=== PATIENT | male | born 1940 | race Caucasian/White ===

== ENCOUNTER 2021-04-23 07:09 | Inpatient (IN) ==
[2021-04-23] MEDS ORDERED: Tetan/Diph/Pertus SYR(Tdap) 0.5 ML SYR(BOOSTRIX) use SYR contains LATEX IM ONE (07:25)
[2021-04-23] MEDS ORDERED: Ondansetron 4 mg VIAL 2 MG/ML 2 ml VIAL IV ONE (07:26)
[2021-04-23] MEDS ORDERED: Morphine 4 MG/ML VIAL (1 ml) IV ONE ×4 (07:26→10:17)
[2021-04-23 07:50] LABS: ABS Eosinophils 0.1 10^3/ul (0-0.6); ABS Monocytes 0.9 10^3/ul (0-0.8); ABS Neutrophils 12.4 10^3/ul (1.5-7.7); Eosinophil % 0.9 %; Hematocrit 38 % (42-52); Hemoglobin 12.4 g/dL (14.0-18.0); Lymphocyte % 6.8 %; Mean Corpuscular HGB Conc 33 g/dL (31-36); Mean Corpuscular Hemoglobin 31 pg (27-31); Mean Corpuscular Volume 93 fL (80-94); Platelet Count 181 10^3/uL (150-450); Red Blood Count 4.06 10^6 /uL (4.18-5.48); Red Cell Distribution Width 17 % (10-15); White Blood Count 14.4 10^3/uL (3.5-10.8)
[2021-04-23 08:07] LABS: ALT 16 U/L (7-52); AST 23 U/L (13-39); Albumin/Globulin Ratio 1.1 (1-3); Alkaline Phosphatase 97 U/L (35-149); Blood Urea Nitrogen 38 mg/dL (6-24); CO2 Carbon Dioxide 24 mmol/L (22-32); Calcium 9.9 mg/dL (8.6-10.3); Chloride 106 mmol/L (101-111); Globulin 3.7 g/dL (2-4); Glucose 111 mg/dL (70-100); Magnesium 1.9 mg/dL (1.9-2.7); Sodium 137 mmol/L (135-145); Total Protein 7.7 g/dL (6.4-8.9); eGFR CKD-EPI 43.5 (>60)
[2021-04-23 08:09] LABS: Anion Gap 7 mmol/L (2-11); Potassium 5.2 mmol/L (3.5-5.0)
[2021-04-23 08:12] LABS: Troponin I 0.03 ng/mL (<0.03)
[2021-04-23 08:37] LABS: Alcohol, S < 13 mg/dL (<13)
[2021-04-23 08:49] LABS: TSH Ultra Thyroid Stim Horm 2.64 mcIU/mL (0.34-5.60)
[2021-04-23] MEDS ORDERED: NS 0.9% 500 ml BAG 500 ML IV ONE (08:58)
[2021-04-23] MEDS ORDERED: Iodixanol (CONTRAST) 320 MG/ML 100 ML SDV IV ONE (09:44)
[2021-04-23] MEDS ORDERED: LORazepam 2 mg VIAL 1 ml IV PUSH ONE (11:00)
[2021-04-23] MEDS ORDERED: Lorazepam PYXIS KEY PRN (11:00)
[2021-04-23] MEDS ORDERED: Albuterol HFA INHALER 8 gm MDI INH ONE (11:04)
[2021-04-23] MEDS ORDERED: NS 0.9% 1000 ml BAG 1,000 ML IV ONE (12:18)
[2021-04-23] MEDS ORDERED: Piperacillin/Tazobac ADVAN 3.375 GM in NS 0.9% 100 ml BAG 100 ML IV ONE (13:58)
[2021-04-23 16:37] LABS: Creatine Kinase 204 U/L (10-223); Phosphorus 2.9 mg/dL (2.5-5.0)
[2021-04-23] MEDS ORDERED: fentaNYL 100 mcg/2 ml 50 MCG/ML VIAL IV SLOW PU PRN (16:37)
[2021-04-23] MEDS ORDERED: Albuterol/Ipratropium NEB.SOL (2.5/0.5 MG) 3 ML NEB.SOLN INH PRN (16:54)
[2021-04-23] MEDS ORDERED: Azithromycin 500 mg/250 ml NS 500 MG/250 ML BAG IVPB ONE (17:00)
[2021-04-23] MEDS: D5LR 1000 ml BAG 1,000 ML IV SCH (17:00)
[2021-04-23] MEDS: Lidocaine PATCH 5% PATCH TRANSDERM SCH (17:03)
[2021-04-23] MEDS: Acetaminophen IV 1 GM/100ML 100 ML IV SCH (17:03)
[2021-04-23 17:53] LABS: Troponin I 0.21 ng/mL (<0.03)
[2021-04-23 18:41] LABS: Anion Gap 8 mmol/L (2-11); CO2 Carbon Dioxide 21 mmol/L (22-32); Calcium 8.8 mg/dL (8.6-10.3); Chloride 109 mmol/L (101-111); Sodium 138 mmol/L (135-145)
[2021-04-23 18:47] LABS: Blood Urea Nitrogen 35 mg/dL (6-24); Glucose 98 mg/dL (70-100); eGFR CKD-EPI 41.9 (>60)
[2021-04-23 19:01] LABS: Urine Appearance Clear; Urine Bilirubin Negative (Negative); Urine Blood Negative (Negative); Urine Color Yellow; Urine Glucose Negative (Negative); Urine Ketones Negative (Negative); Urine Nitrite Negative (Negative); Urine Protein 1+(30 mg/dL) (Negative); Urine Specific Gravity 1.023 (1.002-1.030); Urine Urobilinogen Negative (Negative)
[2021-04-23 19:09] LABS: Urine Bacteria Absent (Absent); Urine Red Blood Cell 2+(6-10/hpf) (Absent); Urine White Blood Cell Trace(0-5/hpf) (Absent)
[2021-04-23 20:42] LABS: Troponin I 0.36 ng/mL (<0.03)
[2021-04-23] MEDS: cefTRIAXone 1 gm/50 mL NS BAG 1 GM/50 ML BAG IVPB SCH (22:57)
[2021-04-23] MEDS: Lidocaine Patch REMOVE NOTE PATCH OFF SCH (23:01)
[2021-04-23 23:22] LABS: Troponin I 0.38 ng/mL (<0.03)
[2021-04-24] MEDS ORDERED: Haloperidol 5 mg/ml SDV IV/IM 5 MG/ML AMP IV SLOW PU PRN (00:23)
[2021-04-24] MEDS ORDERED: LORazepam 2 mg VIAL 1 ml IV PUSH PRN (00:25)
[2021-04-24] MEDS ORDERED: Lorazepam PYXIS KEY PRN ×2 (00:25→02:29)
[2021-04-24] MEDS ORDERED: LORazepam 2 mg VIAL 1 ml ONE (00:30)
[2021-04-24] MEDS: Acetaminophen IV 1 GM/100ML 100 ML IV SCH (01:49)
[2021-04-24 02:22] LABS: Troponin I 0.51 ng/mL (<0.03)
[2021-04-24] MEDS ORDERED: LORazepam 2 mg VIAL 1 ml IV PUSH ONE (02:29)
[2021-04-24] MEDS ORDERED: fentaNYL 100 mcg/2 ml 50 MCG/ML VIAL IV SLOW PU PRN (02:32)
[2021-04-24 05:55] LABS: ABS Eosinophils 0.1 10^3/ul (0-0.6); ABS Monocytes 0.6 10^3/ul (0-0.8); ABS Neutrophils 11.8 10^3/ul (1.5-7.7); Eosinophil % 0.8 %; Hematocrit 31 % (42-52); Hemoglobin 10.3 g/dL (14.0-18.0); Lymphocyte % 7.1 %; Mean Corpuscular HGB Conc 33 g/dL (31-36); Mean Corpuscular Hemoglobin 31 pg (27-31); Mean Corpuscular Volume 93 fL (80-94); Platelet Count 146 10^3/uL (150-450); Red Blood Count 3.35 10^6 /uL (4.18-5.48); Red Cell Distribution Width 16 % (10-15); White Blood Count 13.5 10^3/uL (3.5-10.8)
[2021-04-24 06:32] LABS: Anion Gap 8 mmol/L (2-11); CO2 Carbon Dioxide 20 mmol/L (22-32); Calcium 8.7 mg/dL (8.6-10.3); Chloride 111 mmol/L (101-111); Potassium 4.4 mmol/L (3.5-5.0); Sodium 139 mmol/L (135-145)
[2021-04-24 06:33] LABS: Troponin I 0.51 ng/mL (<0.03)
[2021-04-24 06:38] LABS: Blood Urea Nitrogen 35 mg/dL (6-24); Glucose 105 mg/dL (70-100); eGFR CKD-EPI 44.8 (>60)
[2021-04-24] MEDS: D5LR 1000 ml BAG 1,000 ML IV SCH (06:57)
[2021-04-24] MEDS ORDERED: Morphine 2 MG/ML SYRINGE IV PRN (08:18)
[2021-04-24] MEDS ORDERED: Albuterol HFA INHALER 8 gm MDI INH PRN (08:19)
[2021-04-24] MEDS: Lidocaine PATCH 5% PATCH TRANSDERM SCH (09:00)
[2021-04-24] MEDS: Mometasone/Formoter 100/5 MDI INH SCH ×2 (11:41→19:43)
[2021-04-24] MEDS: Senna TAB 8.6 mg TAB PO PRN (11:41)
[2021-04-24 18:32] LABS: ABS Eosinophils 0.1 10^3/ul (0-0.6); ABS Lymphocytes 1.1 10^3/ul (1.0-4.8); ABS Monocytes 0.8 10^3/ul (0-0.8); ABS Neutrophils 12.1 10^3/ul (1.5-7.7); Eosinophil % 0.9 %; Hematocrit 36 % (42-52); Hemoglobin 11.4 g/dL (14.0-18.0); Lymphocyte % 7.7 %; Mean Corpuscular HGB Conc 32 g/dL (31-36); Mean Corpuscular Hemoglobin 30 pg (27-31); Mean Corpuscular Volume 95 fL (80-94); Mean Platelet Volume 8.1 fL (7.4-10.4); Platelet Count 153 10^3/uL (150-450); Red Blood Count 3.75 10^6 /uL (4.18-5.48); Red Cell Distribution Width 17 % (10-15); White Blood Count 14.1 10^3/uL (3.5-10.8)
[2021-04-24] MEDS: Heparin 5000 UNITS/ML 1 mL VIAL SUBCUT SCH (21:15)
[2021-04-24] MEDS: cefTRIAXone 1 gm/50 mL NS BAG 1 GM/50 ML BAG IVPB SCH (21:15)
[2021-04-24] MEDS: Lidocaine Patch REMOVE NOTE PATCH OFF SCH (21:21)
[2021-04-25] MEDS: D5LR 1000 ml BAG 1,000 ML IV SCH ×2 (02:23→15:25)
[2021-04-25] MEDS ORDERED: Lorazepam PYXIS KEY PRN (03:14)
[2021-04-25] MEDS ORDERED: LORazepam 2 mg VIAL 1 ml IV PUSH ONE (03:15)
[2021-04-25 05:16] LABS: ABS Eosinophils 0.2 10^3/ul (0-0.6); ABS Lymphocytes 0.9 10^3/ul (1.0-4.8); ABS Monocytes 0.7 10^3/ul (0-0.8); ABS Neutrophils 8.7 10^3/ul (1.5-7.7); Eosinophil % 2.2 %; Hematocrit 32 % (42-52); Hemoglobin 10.8 g/dL (14.0-18.0); Lymphocyte % 8.1 %; Mean Corpuscular HGB Conc 34 g/dL (31-36); Mean Corpuscular Hemoglobin 31 pg (27-31); Mean Corpuscular Volume 93 fL (80-94); Mean Platelet Volume 8.8 fL (7.4-10.4); Nucleated Red Blood Cells % 0.1; Platelet Count 158 10^3/uL (150-450); Red Blood Count 3.48 10^6 /uL (4.18-5.48); Red Cell Distribution Width 16 % (10-15); White Blood Count 10.5 10^3/uL (3.5-10.8)
[2021-04-25] MEDS: Heparin 5000 UNITS/ML 1 mL VIAL SUBCUT SCH ×3 (05:28→22:22)
[2021-04-25 05:31] LABS: Potassium 4.1 mmol/L (3.5-5.0); eGFR CKD-EPI 44.5 (>60)
[2021-04-25] MEDS: Mometasone/Formoter 100/5 MDI INH SCH ×2 (07:21→19:32)
[2021-04-25] MEDS: Lidocaine PATCH 5% PATCH TRANSDERM SCH (09:53)
[2021-04-25] MEDS ORDERED: Nicotine GUM 4MG FRUIT FLAVOR PO PRN (12:22)
[2021-04-25] MEDS: Nicotine PATCH 14 MG/24 HR PATCH TRANSDERM SCH (12:38)
[2021-04-25] MEDS: cefTRIAXone 1 gm/50 mL NS BAG 1 GM/50 ML BAG IVPB SCH (22:17)
[2021-04-25] MEDS: Lidocaine Patch REMOVE NOTE PATCH OFF SCH (22:29)
[2021-04-25] MEDS: Senna TAB 8.6 mg TAB PO PRN (22:30)
[2021-04-26] MEDS: D5LR 1000 ml BAG 1,000 ML IV SCH ×3 (02:01→12:17)
[2021-04-26 05:44] LABS: ABS Eosinophils 0.2 10^3/ul (0-0.6); ABS Lymphocytes 0.7 10^3/ul (1.0-4.8); ABS Monocytes 0.7 10^3/ul (0-0.8); ABS Neutrophils 8.8 10^3/ul (1.5-7.7); Eosinophil % 2.3 %; Hematocrit 32 % (42-52); Hemoglobin 10.6 g/dL (14.0-18.0); Mean Corpuscular HGB Conc 34 g/dL (31-36); Mean Corpuscular Hemoglobin 32 pg (27-31); Mean Corpuscular Volume 94 fL (80-94); Mean Platelet Volume 8.7 fL (7.4-10.4); Platelet Count 162 10^3/uL (150-450); Red Blood Count 3.35 10^6 /uL (4.18-5.48); Red Cell Distribution Width 16 % (10-15); White Blood Count 10.5 10^3/uL (3.5-10.8)
[2021-04-26 05:56] LABS: Activated Partial Thrombo Time 25.3 seconds (26.0-38.0); INR 1.21 (0.86-1.15)
[2021-04-26 06:01] LABS: Calcium 9.1 mg/dL (8.6-10.3); Potassium 4.2 mmol/L (3.5-5.0); eGFR CKD-EPI 51.2 (>60)
[2021-04-26] MEDS ORDERED: ROPIVACAINE 5 MG/ML 30 ML BTL (0.5%) ONE (07:08)
[2021-04-26] MEDS ORDERED: ceFAZolin 1 GM ADVAN 1 GM ADDV.VIAL IVPB ONE (07:12)
[2021-04-26] MEDS: Mometasone/Formoter 100/5 MDI INH SCH ×2 (07:23→21:15)
[2021-04-26] MEDS ORDERED: Midazolam 2 mg/2 ml VIAL 1 mg/ml 2 ml VIAL (2 mg) ONE (07:27)
[2021-04-26] MEDS ORDERED: Propofol 10 MG/ML 20 ML BTL ONE ×2 (07:27→08:53)
[2021-04-26] MEDS ORDERED: Ketamine HCL 50 mg/ml 10 ml VIAL (500 MG) ONE (07:27)
[2021-04-26] MEDS ORDERED: Bupivacaine 0.5% SDV PF 30ML VIAL ONE (07:56)
[2021-04-26] MEDS ORDERED: Phenylephrine IV 10 MG/ML 1 ml VIAL ONE (08:51)
[2021-04-26] MEDS ORDERED: Phenylephrine 40 mcg/mL 10mL (400mcg) SYRINGE ONE (08:51)
[2021-04-26] MEDS ORDERED: Naloxone 0.4 mg VIAL 0.4 mg/ml 1 ml VIAL IV PRN (08:54)
[2021-04-26] MEDS ORDERED: fentaNYL 100 mcg/2 ml 50 MCG/ML VIAL IV PRN (08:54)
[2021-04-26] MEDS ORDERED: DiMENhydriNATE IV 50 mg/ml 1 ml VIAL IV PUSH PRN (08:54)
[2021-04-26] MEDS: Lidocaine PATCH 5% PATCH TRANSDERM SCH (12:01)
[2021-04-26] MEDS: Nicotine PATCH 14 MG/24 HR PATCH TRANSDERM SCH (12:13)
[2021-04-26] MEDS ORDERED: ceFAZolin 1 GM X 3 DOSES POST-OP Q8H (AddVan) IVPB SCH (17:00)
[2021-04-26 18:42] LABS: Urine Appearance Clear; Urine Bilirubin Negative (Negative); Urine Blood 2+ (Negative); Urine Color Yellow; Urine Glucose Negative (Negative); Urine Ketones Trace (Negative); Urine Nitrite Negative (Negative); Urine Protein 1+(30 mg/dL) (Negative); Urine Specific Gravity 1.015 (1.002-1.030); Urine Urobilinogen Negative (Negative)
[2021-04-26 18:49] LABS: Urine Bacteria Absent (Absent); Urine Red Blood Cell 2+(6-10/hpf) (Absent); Urine White Blood Cell Trace(0-5/hpf) (Absent)
[2021-04-26] MEDS: cefTRIAXone 1 gm/50 mL NS BAG 1 GM/50 ML BAG IVPB SCH (21:40)
[2021-04-26] MEDS: Lidocaine Patch REMOVE NOTE PATCH OFF SCH (21:41)
[2021-04-27] MEDS: D5LR 1000 ml BAG 1,000 ML IV SCH ×2 (03:14→20:50)
[2021-04-27 03:51] LABS: ABS Eosinophils 0.1 10^3/ul (0-0.6); ABS Lymphocytes 0.6 10^3/ul (1.0-4.8); ABS Monocytes 0.9 10^3/ul (0-0.8); ABS Neutrophils 9.5 10^3/ul (1.5-7.7); Eosinophil % 0.5 %; Hematocrit 30 % (42-52); Hemoglobin 9.9 g/dL (14.0-18.0); Lymphocyte % 5.8 %; Mean Corpuscular HGB Conc 33 g/dL (31-36); Mean Corpuscular Hemoglobin 31 pg (27-31); Mean Corpuscular Volume 93 fL (80-94); Platelet Count 177 10^3/uL (150-450); Red Blood Count 3.25 10^6 /uL (4.18-5.48); Red Cell Distribution Width 17 % (10-15); White Blood Count 11.1 10^3/uL (3.5-10.8)
[2021-04-27 04:04] LABS: Calcium 8.6 mg/dL (8.6-10.3); Potassium 4.1 mmol/L (3.5-5.0); eGFR CKD-EPI 47.8 (>60)
[2021-04-27 06:18] LABS: ABS Eosinophils 0.1 10^3/ul (0-0.6); ABS Monocytes 1.1 10^3/ul (0-0.8); ABS Neutrophils 10.3 10^3/ul (1.5-7.7); Hematocrit 32 % (42-52); Hemoglobin 10.2 g/dL (14.0-18.0); Lymphocyte % 7.8 %; Mean Corpuscular HGB Conc 32 g/dL (31-36); Mean Corpuscular Hemoglobin 30 pg (27-31); Mean Corpuscular Volume 94 fL (80-94); Mean Platelet Volume 8.9 fL (7.4-10.4); Nucleated Red Blood Cells % 0.1; Platelet Count 172 10^3/uL (150-450); Red Blood Count 3.37 10^6 /uL (4.18-5.48); Red Cell Distribution Width 16 % (10-15); White Blood Count 12.4 10^3/uL (3.5-10.8)
[2021-04-27 06:37] LABS: Calcium 8.8 mg/dL (8.6-10.3); Potassium 4.2 mmol/L (3.5-5.0); eGFR CKD-EPI 48.2 (>60)
[2021-04-27] MEDS: Enoxaparin 40 MG/0.4 ML SYR SUBCUT SCH (08:31)
[2021-04-27] MEDS: Lidocaine PATCH 5% PATCH TRANSDERM SCH (08:33)
[2021-04-27] MEDS: Nicotine PATCH 14 MG/24 HR PATCH TRANSDERM SCH (08:36)
[2021-04-27] MEDS ORDERED: Haloperidol 5 mg/ml SDV IV/IM 5 MG/ML AMP IV SLOW PU ONE (09:03)
[2021-04-27] MEDS ORDERED: Buffered Lidocaine 1% SYRIN 1 ml INTRADERM ONE (09:18)
[2021-04-27] MEDS ORDERED: Vancomycin 1,500 MG in NS 0.9% 250 ml 250 ML IVPB ONE (11:00)
[2021-04-27] MEDS: Mometasone/Formoter 100/5 MDI INH SCH ×2 (11:33→20:04)
[2021-04-27] MEDS ORDERED: Vancomycin per Pharmacy 1 EA NOTE FOLLOW UP PRN (12:07)
[2021-04-27] MEDS: Cefepime 2 GM in Dextrose 2 GM/50 ML BAG IV SCH (13:17)
[2021-04-27 13:27] LABS: C Reactive Protein 281.58 mg/L (<8.01)
[2021-04-27] MEDS: Lidocaine Patch REMOVE NOTE PATCH OFF SCH ×2 (20:47→20:49)
[2021-04-28] MEDS: Cefepime 2 GM in Dextrose 2 GM/50 ML BAG IV SCH ×2 (01:27→14:27)
[2021-04-28] MEDS: Nicotine PATCH 14 MG/24 HR PATCH TRANSDERM SCH (08:11)
[2021-04-28] MEDS: Senna TAB 8.6 mg TAB PO PRN (08:11)
[2021-04-28] MEDS: Lidocaine PATCH 5% PATCH TRANSDERM SCH (08:13)
[2021-04-28] MEDS: Enoxaparin 40 MG/0.4 ML SYR SUBCUT SCH (08:16)
[2021-04-28] MEDS: Polyethylene Glycol 3350 17 GM PACKET PO PRN (08:17)
[2021-04-28] MEDS: D5LR 1000 ml BAG 1,000 ML IV SCH ×2 (08:43→21:26)
[2021-04-28 09:03] LABS: ABS Eosinophils 0.3 10^3/ul (0-0.6); ABS Lymphocytes 0.7 10^3/ul (1.0-4.8); ABS Monocytes 0.9 10^3/ul (0-0.8); ABS Neutrophils 7.5 10^3/ul (1.5-7.7); Eosinophil % 3.4 %; Hematocrit 26 % (42-52); Hemoglobin 8.7 g/dL (14.0-18.0); Lymphocyte % 7.3 %; Mean Corpuscular HGB Conc 33 g/dL (31-36); Mean Corpuscular Hemoglobin 31 pg (27-31); Mean Corpuscular Volume 93 fL (80-94); Mean Platelet Volume 8.5 fL (7.4-10.4); Platelet Count 195 10^3/uL (150-450); Red Blood Count 2.82 10^6 /uL (4.18-5.48); Red Cell Distribution Width 16 % (10-15); White Blood Count 9.4 10^3/uL (3.5-10.8)
[2021-04-28 09:23] LABS: Calcium 8.5 mg/dL (8.6-10.3); eGFR CKD-EPI 44.5 (>60)
[2021-04-28] MEDS: Mometasone/Formoter 100/5 MDI INH SCH ×2 (12:21→19:38)
[2021-04-28] MEDS: Vancomycin 1,250 MG in NS 0.9% 250 ml 250 ML IVPB SCH (12:42)
[2021-04-28] MEDS: Lidocaine Patch REMOVE NOTE PATCH OFF SCH (21:16)
[2021-04-29] MEDS: Cefepime 2 GM in Dextrose 2 GM/50 ML BAG IV SCH ×2 (01:01→13:47)
[2021-04-29 05:08] LABS: ABS Eosinophils 0.5 10^3/ul (0-0.6); ABS Lymphocytes 0.7 10^3/ul (1.0-4.8); ABS Monocytes 0.7 10^3/ul (0-0.8); ABS Neutrophils 5.7 10^3/ul (1.5-7.7); Eosinophil % 6.9 %; Hematocrit 24 % (42-52); Lymphocyte % 9.3 %; Mean Corpuscular HGB Conc 33 g/dL (31-36); Mean Corpuscular Hemoglobin 31 pg (27-31); Mean Corpuscular Volume 93 fL (80-94); Mean Platelet Volume 8.1 fL (7.4-10.4); Platelet Count 210 10^3/uL (150-450); Red Blood Count 2.61 10^6 /uL (4.18-5.48); Red Cell Distribution Width 15 % (10-15); White Blood Count 7.6 10^3/uL (3.5-10.8)
[2021-04-29 05:25] LABS: Calcium 8.4 mg/dL (8.6-10.3); Magnesium 1.7 mg/dL (1.9-2.7); eGFR CKD-EPI 47.8 (>60)
[2021-04-29] MEDS: Mometasone/Formoter 100/5 MDI INH SCH ×2 (07:18→20:25)
[2021-04-29] MEDS ORDERED: Magnesium Sulfate IV 3 GM in NS 0.9% 100 ml BAG 100 ML IVPB ONE (08:25)
[2021-04-29] MEDS ORDERED: Magnesium Sulfate 2 GM IV (Premix) IVPB ONE (09:00)
[2021-04-29] MEDS ORDERED: Haloperidol 5 mg/ml SDV IV/IM 5 MG/ML AMP IV SLOW PU ONE (09:01)
[2021-04-29] MEDS ORDERED: COVID-19 VACCINE, MRNA(MODERNA)/PF 100 MCG/0.5 ML IM ONE (09:19)
[2021-04-29] MEDS: Lidocaine PATCH 5% PATCH TRANSDERM SCH (09:32)
[2021-04-29] MEDS: Nicotine PATCH 14 MG/24 HR PATCH TRANSDERM SCH (09:33)
[2021-04-29] MEDS: Enoxaparin 40 MG/0.4 ML SYR SUBCUT SCH (09:34)
[2021-04-29] MEDS: Senna TAB 8.6 mg TAB PO PRN (09:35)
[2021-04-29] MEDS: Polyethylene Glycol 3350 17 GM PACKET PO PRN (09:41)
[2021-04-29] MEDS ORDERED: Magnesium Sulfate 1 GM IV 1 GM/100 ML BAG IV ONE (10:00)
[2021-04-29 12:36] LABS: C Reactive Protein 236.61 mg/L (<8.01)
[2021-04-29] MEDS ORDERED: COVID-19 VACCINE, TRIS(PFIZER)/PF 30 MCG/0.3 ML IM ONE (14:00)
[2021-04-29] MEDS: Vancomycin 1,250 MG in NS 0.9% 250 ml 250 ML IVPB SCH (15:19)
[2021-04-29] MEDS: D5LR 1000 ml BAG 1,000 ML IV SCH (17:52)
[2021-04-29] MEDS: Lidocaine Patch REMOVE NOTE PATCH OFF SCH (20:25)
[2021-04-30] MEDS: Cefepime 2 GM in Dextrose 2 GM/50 ML BAG IV SCH ×2 (00:28→12:49)
[2021-04-30 05:18] LABS: Hematocrit 26 % (42-52); Hemoglobin 8.4 g/dL (14.0-18.0); Mean Corpuscular HGB Conc 33 g/dL (31-36); Mean Corpuscular Hemoglobin 30 pg (27-31); Mean Corpuscular Volume 92 fL (80-94); Platelet Count 274 10^3/uL (150-450); Red Cell Distribution Width 16 % (10-15); White Blood Count 8.5 10^3/uL (3.5-10.8)
[2021-04-30 05:26] LABS: ABS Eosinophils 0.4 10^3/ul (0-0.6); ABS Lymphocytes 0.8 10^3/ul (1.0-4.8); ABS Monocytes 0.7 10^3/ul (0-0.8); ABS Neutrophils 6.7 10^3/ul (1.5-7.7); Eosinophil % 4.8 %
[2021-04-30] MEDS: D5LR 1000 ml BAG 1,000 ML IV SCH ×2 (05:49→23:55)
[2021-04-30] MEDS: Nicotine PATCH 14 MG/24 HR PATCH TRANSDERM SCH (08:13)
[2021-04-30] MEDS: Lidocaine PATCH 5% PATCH TRANSDERM SCH (08:14)
[2021-04-30] MEDS: Mometasone/Formoter 100/5 MDI INH SCH ×2 (08:15→20:53)
[2021-04-30] MEDS: Enoxaparin 40 MG/0.4 ML SYR SUBCUT SCH (08:18)
[2021-04-30] MEDS ORDERED: Vancomycin Trough Check NOTE FOLLOW UP ONE (11:30)
[2021-04-30] MEDS: Lidocaine Patch REMOVE NOTE PATCH OFF SCH (21:02)
[2021-05-01] MEDS: Haloperidol 5 mg/ml SDV IV/IM 5 MG/ML AMP IV PRN (04:44)
[2021-05-01] MEDS ORDERED: Lorazepam PYXIS KEY PRN (07:08)
[2021-05-01] MEDS: LORazepam 2 mg VIAL 1 ml IV PUSH PRN (07:54)
[2021-05-01] MEDS: Enoxaparin 40 MG/0.4 ML SYR SUBCUT SCH (08:23)
[2021-05-01] MEDS: Mometasone/Formoter 100/5 MDI INH SCH ×3 (08:49→20:53)
[2021-05-01] MEDS: Lidocaine PATCH 5% PATCH TRANSDERM SCH (09:06)
[2021-05-01] MEDS: Nicotine PATCH 14 MG/24 HR PATCH TRANSDERM SCH (10:25)
[2021-05-01] MEDS: D5LR 1000 ml BAG 1,000 ML IV SCH (17:58)
[2021-05-01] MEDS: Senna TAB 8.6 mg TAB PO PRN (21:46)
[2021-05-02] MEDS: Lidocaine Patch REMOVE NOTE PATCH OFF SCH ×2 (00:19→20:42)
[2021-05-02] MEDS: LORazepam 2 mg VIAL 1 ml IV PUSH PRN ×2 (00:30→23:57)
[2021-05-02] MEDS: D5LR 1000 ml BAG 1,000 ML IV SCH ×2 (04:05→18:27)
[2021-05-02] MEDS: Haloperidol 5 mg/ml SDV IV/IM 5 MG/ML AMP IV PRN ×2 (04:21→22:51)
[2021-05-02] MEDS: Mometasone/Formoter 100/5 MDI INH SCH ×2 (08:57→20:35)
[2021-05-02] MEDS: Lidocaine PATCH 5% PATCH TRANSDERM SCH (09:30)
[2021-05-02] MEDS: Nicotine PATCH 14 MG/24 HR PATCH TRANSDERM SCH (09:33)
[2021-05-02] MEDS: Enoxaparin 40 MG/0.4 ML SYR SUBCUT SCH (09:53)
[2021-05-03] MEDS: D5LR 1000 ml BAG 1,000 ML IV SCH ×2 (04:23→19:45)
[2021-05-03] MEDS: Enoxaparin 40 MG/0.4 ML SYR SUBCUT SCH (08:17)
[2021-05-03] MEDS: Nicotine PATCH 14 MG/24 HR PATCH TRANSDERM SCH (08:17)
[2021-05-03] MEDS: Lidocaine PATCH 5% PATCH TRANSDERM SCH (08:17)
[2021-05-03] MEDS: Mometasone/Formoter 100/5 MDI INH SCH ×2 (08:30→20:11)
[2021-05-03 08:41] LABS: Hematocrit 26 % (42-52); Hemoglobin 8.4 g/dL (14.0-18.0); Mean Corpuscular HGB Conc 33 g/dL (31-36); Mean Corpuscular Hemoglobin 30 pg (27-31); Mean Corpuscular Volume 92 fL (80-94); Mean Platelet Volume 7.3 fL (7.4-10.4); Platelet Count 399 10^3/uL (150-450); Red Blood Count 2.77 10^6 /uL (4.18-5.48); Red Cell Distribution Width 16 % (10-15); White Blood Count 7.2 10^3/uL (3.5-10.8)
[2021-05-03 08:54] LABS: Calcium 8.6 mg/dL (8.6-10.3); Magnesium 1.9 mg/dL (1.9-2.7)
[2021-05-03 09:17] LABS: ABS Basophils 0.1 10^3/ul (0-0.2); ABS Eosinophils 0.6 10^3/ul (0-0.6); ABS Lymphocytes 1.1 10^3/ul (1.0-4.8); ABS Monocytes 0.6 10^3/ul (0-0.8); ABS Neutrophils 4.8 10^3/ul (1.5-7.7); Eosinophil % 8.9 %; Lymphocyte % 15.6 %; RBC Morphology Normal (Normal)
[2021-05-03 12:49] LABS: C Reactive Protein 101.34 mg/L (<8.01)
[2021-05-03] MEDS: Lidocaine Patch REMOVE NOTE PATCH OFF SCH (20:12)
[2021-05-04] MEDS ORDERED: Magnesium Hydroxide LIQ 30 ML UDC PO PRN (00:58)
[2021-05-04] MEDS: LORazepam 2 mg VIAL 1 ml IV PUSH PRN (01:50)
[2021-05-04] MEDS: Nicotine PATCH 14 MG/24 HR PATCH TRANSDERM SCH (08:41)
[2021-05-04] MEDS: Lidocaine PATCH 5% PATCH TRANSDERM SCH (08:42)
[2021-05-04] MEDS: Enoxaparin 40 MG/0.4 ML SYR SUBCUT SCH (08:47)
[2021-05-04] MEDS: Mometasone/Formoter 100/5 MDI INH SCH ×2 (08:54→19:37)
[2021-05-04] MEDS: Haloperidol 5 mg/ml SDV IV/IM 5 MG/ML AMP IV PRN (12:18)
[2021-05-04] MEDS: Lidocaine Patch REMOVE NOTE PATCH OFF SCH (21:55)
[2021-05-05] MEDS: LORazepam 2 mg VIAL 1 ml IV PUSH PRN (00:04)
[2021-05-05] MEDS: Haloperidol 5 mg/ml SDV IV/IM 5 MG/ML AMP IV PRN ×2 (02:23→08:59)
[2021-05-05 05:12] LABS: Hematocrit 28 % (42-52); Hemoglobin 9.2 g/dL (14.0-18.0); Mean Corpuscular HGB Conc 33 g/dL (31-36); Mean Corpuscular Hemoglobin 30 pg (27-31); Mean Corpuscular Volume 92 fL (80-94); Mean Platelet Volume 7.4 fL (7.4-10.4); Platelet Count 441 10^3/uL (150-450); Red Blood Count 3.04 10^6 /uL (4.18-5.48); Red Cell Distribution Width 16 % (10-15); White Blood Count 9.2 10^3/uL (3.5-10.8)
[2021-05-05 05:27] LABS: Calcium 9.1 mg/dL (8.6-10.3); Potassium 4.5 mmol/L (3.5-5.0); eGFR CKD-EPI 52.1 (>60)
[2021-05-05 07:25] LABS: ABS Eosinophils 0.6 10^3/ul (0-0.6); ABS Lymphocytes 1.4 10^3/ul (1.0-4.8); ABS Monocytes 0.8 10^3/ul (0-0.8); ABS Neutrophils 6.3 10^3/ul (1.5-7.7); Eosinophil % 6.9 %; Lymphocyte % 15.3 %
[2021-05-05] MEDS: Mometasone/Formoter 100/5 MDI INH SCH ×2 (07:54→19:20)
[2021-05-05] MEDS: Nicotine PATCH 14 MG/24 HR PATCH TRANSDERM SCH (08:58)
[2021-05-05] MEDS: Lidocaine PATCH 5% PATCH TRANSDERM SCH (08:59)
[2021-05-05] MEDS: Enoxaparin 40 MG/0.4 ML SYR SUBCUT SCH (08:59)
[2021-05-05 12:34] LABS: Osmolality Serum 309 mOsm/kg (275-295)
[2021-05-05 16:41] LABS: Urine Appearance Clear; Urine Bilirubin Negative (Negative); Urine Blood 1+ (Negative); Urine Color Yellow; Urine Glucose Negative (Negative); Urine Ketones Negative (Negative); Urine Nitrite Negative (Negative); Urine Protein 1+(30 mg/dL) (Negative); Urine Specific Gravity 1.013 (1.002-1.030); Urine Urobilinogen Negative (Negative)
[2021-05-05 16:46] LABS: Urine Bacteria Absent (Absent); Urine Red Blood Cell Trace(0-2/hpf) (Absent); Urine White Blood Cell Trace(0-5/hpf) (Absent)
[2021-05-05 20:11] LABS: Urine Osmo 565 mOsm/kg (150-1150)
[2021-05-06 06:48] LABS: Hematocrit 27 % (42-52); Hemoglobin 8.9 g/dL (14.0-18.0); Mean Corpuscular HGB Conc 33 g/dL (31-36); Mean Corpuscular Hemoglobin 31 pg (27-31); Mean Corpuscular Volume 92 fL (80-94); Mean Platelet Volume 7.1 fL (7.4-10.4); Platelet Count 395 10^3/uL (150-450); Red Blood Count 2.89 10^6 /uL (4.18-5.48); Red Cell Distribution Width 16 % (10-15); White Blood Count 8.3 10^3/uL (3.5-10.8)
[2021-05-06 07:00] LABS: Calcium 9.1 mg/dL (8.6-10.3); Potassium 4.6 mmol/L (3.5-5.0); eGFR CKD-EPI 43.5 (>60)
[2021-05-06 07:15] LABS: ABS Eosinophils 0.3 10^3/ul (0-0.6); ABS Lymphocytes 1.1 10^3/ul (1.0-4.8); ABS Monocytes 0.8 10^3/ul (0-0.8); ABS Neutrophils 5.9 10^3/ul (1.5-7.7); Lymphocyte % 13.5 %
[2021-05-06 08:05] LABS: Anisocytosis 1+; Hypochromasia 2+; Stomatocytes 1+
[2021-05-06] MEDS: Mometasone/Formoter 100/5 MDI INH SCH ×2 (08:13→19:42)
[2021-05-06 09:17] LABS: C Reactive Protein 112.07 mg/L (<8.01); Magnesium 1.9 mg/dL (1.9-2.7)
[2021-05-06] MEDS: Lidocaine PATCH 5% PATCH TRANSDERM SCH (10:03)
[2021-05-06] MEDS: Nicotine PATCH 14 MG/24 HR PATCH TRANSDERM SCH (10:03)
[2021-05-06] MEDS: Enoxaparin 40 MG/0.4 ML SYR SUBCUT SCH (10:16)
[2021-05-07 05:08] LABS: Hematocrit 28 % (42-52); Hemoglobin 9.3 g/dL (14.0-18.0); Mean Corpuscular HGB Conc 33 g/dL (31-36); Mean Corpuscular Hemoglobin 31 pg (27-31); Mean Corpuscular Volume 94 fL (80-94); Mean Platelet Volume 7.5 fL (7.4-10.4); Platelet Count 404 10^3/uL (150-450); Red Cell Distribution Width 17 % (10-15); White Blood Count 6.4 10^3/uL (3.5-10.8)
[2021-05-07 05:13] LABS: ABS Eosinophils 0.5 10^3/ul (0-0.6); ABS Lymphocytes 1.2 10^3/ul (1.0-4.8); ABS Monocytes 0.7 10^3/ul (0-0.8); ABS Neutrophils 4.1 10^3/ul (1.5-7.7); Eosinophil % 7.2 %; Lymphocyte % 18.4 %; Nucleated Red Blood Cells % 0.1
[2021-05-07 05:31] LABS: Calcium 8.9 mg/dL (8.6-10.3); Potassium 4.5 mmol/L (3.5-5.0); eGFR CKD-EPI 51.6 (>60)
[2021-05-07] MEDS: Mometasone/Formoter 100/5 MDI INH SCH ×2 (07:38→19:28)
[2021-05-07] MEDS: Lidocaine PATCH 5% PATCH TRANSDERM SCH (07:56)
[2021-05-07] MEDS: Enoxaparin 40 MG/0.4 ML SYR SUBCUT SCH (07:56)
[2021-05-07] MEDS: Polyethylene Glycol 3350 17 GM PACKET PO PRN (07:56)
[2021-05-07] MEDS: Nicotine PATCH 14 MG/24 HR PATCH TRANSDERM SCH (07:56)
[2021-05-07 12:38] LABS: Osmolality Serum 306 mOsm/kg (275-295)
[2021-05-08] MEDS: Mometasone/Formoter 100/5 MDI INH SCH ×2 (07:49→19:41)
[2021-05-08] MEDS: Lidocaine PATCH 5% PATCH TRANSDERM SCH (09:16)
[2021-05-08] MEDS: Enoxaparin 40 MG/0.4 ML SYR SUBCUT SCH (09:16)
[2021-05-08] MEDS: Nicotine PATCH 14 MG/24 HR PATCH TRANSDERM SCH ×2 (09:16→10:31)
[2021-05-09] MEDS ORDERED: Haloperidol 5 mg/ml SDV IV/IM 5 MG/ML AMP IM ONE (06:52)
[2021-05-09] MEDS: Mometasone/Formoter 100/5 MDI INH SCH ×2 (07:50→19:52)
[2021-05-09] MEDS: Enoxaparin 40 MG/0.4 ML SYR SUBCUT SCH (10:05)
[2021-05-09] MEDS: Nicotine PATCH 14 MG/24 HR PATCH TRANSDERM SCH (10:07)
[2021-05-09] MEDS: Lidocaine PATCH 5% PATCH TRANSDERM SCH (10:10)
[2021-05-10 05:40] LABS: Urine Appearance Clear; Urine Bilirubin Negative (Negative); Urine Blood 2+ (Negative); Urine Color Yellow; Urine Glucose Negative (Negative); Urine Ketones Negative (Negative); Urine Nitrite Negative (Negative); Urine Protein 1+(30 mg/dL) (Negative); Urine Specific Gravity 1.019 (1.002-1.030); Urine Urobilinogen Negative (Negative)
[2021-05-10 06:01] LABS: Urine Bacteria Absent (Absent); Urine Red Blood Cell 3+(>10/hpf) (Absent); Urine Squamous Epithelial Cell Present (Absent); Urine White Blood Cell 3+(>20/hpf) (Absent)
[2021-05-10] MEDS: Mometasone/Formoter 100/5 MDI INH SCH ×2 (09:01→20:28)
[2021-05-10] MEDS: Enoxaparin 40 MG/0.4 ML SYR SUBCUT SCH (10:17)
[2021-05-10] MEDS: Nicotine PATCH 14 MG/24 HR PATCH TRANSDERM SCH (10:25)
[2021-05-10] MEDS: Lidocaine PATCH 5% PATCH TRANSDERM SCH (10:30)
[2021-05-11] MEDS ORDERED: Haloperidol 5 mg/ml SDV IV/IM 5 MG/ML AMP IM ONE (02:28)
[2021-05-11] MEDS: Mometasone/Formoter 100/5 MDI INH SCH ×2 (07:25→20:03)
[2021-05-11] MEDS: Lidocaine PATCH 5% PATCH TRANSDERM SCH (09:18)
[2021-05-11] MEDS: Nicotine PATCH 14 MG/24 HR PATCH TRANSDERM SCH (11:44)
[2021-05-11] MEDS: Enoxaparin 40 MG/0.4 ML SYR SUBCUT SCH (11:44)
[2021-05-11 12:04] LABS: Hematocrit 29 % (42-52); Hemoglobin 9.3 g/dL (14.0-18.0); Mean Corpuscular HGB Conc 32 g/dL (31-36); Mean Corpuscular Hemoglobin 30 pg (27-31); Mean Corpuscular Volume 93 fL (80-94); Mean Platelet Volume 7.3 fL (7.4-10.4); Platelet Count 323 10^3/uL (150-450); Red Blood Count 3.09 10^6 /uL (4.18-5.48); Red Cell Distribution Width 17 % (10-15); White Blood Count 5.9 10^3/uL (3.5-10.8)
[2021-05-11 12:05] LABS: ABS Eosinophils 0.4 10^3/ul (0-0.6); ABS Lymphocytes 1.1 10^3/ul (1.0-4.8); ABS Monocytes 0.7 10^3/ul (0-0.8); ABS Neutrophils 3.6 10^3/ul (1.5-7.7); Eosinophil % 6.8 %; Lymphocyte % 19.6 %
[2021-05-11 12:33] LABS: Potassium 4.9 mmol/L (3.5-5.0); eGFR CKD-EPI 42.8 (>60)
[2021-05-12] MEDS: Nicotine PATCH 14 MG/24 HR PATCH TRANSDERM SCH (09:01)
[2021-05-12] MEDS: Enoxaparin 40 MG/0.4 ML SYR SUBCUT SCH (09:02)
[2021-05-12] MEDS: Mometasone/Formoter 100/5 MDI INH SCH ×2 (09:10→20:26)
[2021-05-12] MEDS: Lidocaine PATCH 5% PATCH TRANSDERM SCH (09:13)
[2021-05-12] MEDS: Lidocaine 2% JELLY 6 ML TOPICAL PRN (15:30)
[2021-05-12] MEDS: Senna TAB 8.6 mg TAB PO PRN (21:16)
[2021-05-13] MEDS: Lidocaine PATCH 5% PATCH TRANSDERM SCH (07:29)
[2021-05-13] MEDS: Nicotine PATCH 14 MG/24 HR PATCH TRANSDERM SCH (09:25)
[2021-05-13] MEDS: Enoxaparin 40 MG/0.4 ML SYR SUBCUT SCH (09:25)
[2021-05-13] MEDS: Mometasone/Formoter 100/5 MDI INH SCH ×2 (10:07→19:50)
[2021-05-13 10:36] LABS: ABS Eosinophils 0.4 10^3/ul (0-0.6); ABS Lymphocytes 1.1 10^3/ul (1.0-4.8); ABS Monocytes 0.5 10^3/ul (0-0.8); ABS Neutrophils 2.2 10^3/ul (1.5-7.7); Eosinophil % 8.7 %; Hematocrit 33 % (42-52); Hemoglobin 9.6 g/dL (14.0-18.0); Lymphocyte % 26.3 %; Mean Corpuscular HGB Conc 30 g/dL (31-36); Mean Corpuscular Hemoglobin 30 pg (27-31); Mean Corpuscular Volume 103 fL (80-94); Mean Platelet Volume 7.5 fL (7.4-10.4); Nucleated Red Blood Cells % 0.2; Platelet Count 313 10^3/uL (150-450); Red Blood Count 3.16 10^6 /uL (4.18-5.48); Red Cell Distribution Width 18 % (10-15); White Blood Count 4.3 10^3/uL (3.5-10.8)
[2021-05-13 10:51] LABS: Troponin I 0.01 ng/mL (<0.03)
[2021-05-13 11:36] LABS: Calcium 9.3 mg/dL (8.6-10.3); Magnesium 2.2 mg/dL (1.9-2.7); Potassium 4.7 mmol/L (3.5-5.0); eGFR CKD-EPI 37.1 (>60)
[2021-05-14] MEDS: LORazepam 2 mg VIAL 1 ml IV PUSH ONE ×2 (05:20→19:01)
[2021-05-14] MEDS: Mometasone/Formoter 100/5 MDI INH SCH ×2 (08:44→20:07)
[2021-05-14] MEDS: Enoxaparin 40 MG/0.4 ML SYR SUBCUT SCH (10:10)
[2021-05-14] MEDS: Lidocaine PATCH 5% PATCH TRANSDERM SCH (14:21)
[2021-05-14] MEDS: Nicotine PATCH 14 MG/24 HR PATCH TRANSDERM SCH (14:21)
[2021-05-14 15:55] LABS: ABS Eosinophils 0.3 10^3/ul (0-0.6); ABS Lymphocytes 1.2 10^3/ul (1.0-4.8); ABS Monocytes 0.5 10^3/ul (0-0.8); ABS Neutrophils 2.6 10^3/ul (1.5-7.7); Hematocrit 31 % (42-52); Hemoglobin 10.1 g/dL (14.0-18.0); Lymphocyte % 25.2 %; Mean Corpuscular HGB Conc 33 g/dL (31-36); Mean Corpuscular Hemoglobin 30 pg (27-31); Mean Corpuscular Volume 93 fL (80-94); Mean Platelet Volume 7.4 fL (7.4-10.4); Nucleated Red Blood Cells % 0.1; Platelet Count 292 10^3/uL (150-450); Red Blood Count 3.34 10^6 /uL (4.18-5.48); Red Cell Distribution Width 16 % (10-15); White Blood Count 4.7 10^3/uL (3.5-10.8)
[2021-05-14 16:33] LABS: Calcium 9.1 mg/dL (8.6-10.3); Potassium 4.9 mmol/L (3.5-5.0); eGFR CKD-EPI 40.4 (>60)
[2021-05-14] MEDS: Lidocaine 2% JELLY 6 ML TOPICAL PRN (17:43)
[2021-05-14] MEDS ORDERED: Haloperidol 5 mg/ml SDV IV/IM 5 MG/ML AMP IV SLOW PU ONE (23:41)
[2021-05-15] MEDS: Mometasone/Formoter 100/5 MDI INH SCH ×3 (02:54→19:58)
[2021-05-15] MEDS ORDERED: NS 0.9% 500 ml BAG 500 ML IV SCH (08:00)
[2021-05-15] MEDS: Nicotine PATCH 14 MG/24 HR PATCH TRANSDERM SCH (08:50)
[2021-05-15] MEDS: Lidocaine PATCH 5% PATCH TRANSDERM SCH (08:50)
[2021-05-15] MEDS: Enoxaparin 40 MG/0.4 ML SYR SUBCUT SCH (08:50)
[2021-05-15] MEDS ORDERED: LORazepam 2 mg VIAL 1 ml IV PUSH PRN (13:22)
[2021-05-15] MEDS ORDERED: Haloperidol 5 mg/ml SDV IV/IM 5 MG/ML AMP IM ONE (19:05)
[2021-05-16 06:14] LABS: Calcium 9.1 mg/dL (8.6-10.3); Potassium 4.9 mmol/L (3.5-5.0); eGFR CKD-EPI 38.2 (>60)
[2021-05-16] MEDS: Mometasone/Formoter 100/5 MDI INH SCH (07:04)
[2021-05-16 07:43] VITALS: BP 114/73
[2021-05-16] MEDS ORDERED: Polyethylene Glycol 3350 17 GM PACKET PO SCH (09:00)
[2021-05-16] MEDS: Lidocaine PATCH 5% PATCH TRANSDERM SCH (09:13)
[2021-05-16] MEDS: Nicotine PATCH 14 MG/24 HR PATCH TRANSDERM SCH (09:14)
[2021-05-16] MEDS: Enoxaparin 40 MG/0.4 ML SYR SUBCUT SCH (09:17)
== END 2021-05-16 16:04 | disposition swing bed (61) | DRG 521 ==
LOC: ED 07:09 → SUATTDRO 15:01 → EDHOLD 15:01 → SSU 16:55 → MEDTELE 04-24 07:52 → SSU 04-26 11:33
PROVIDERS: ADMIT Internal Medicine; ATTEND Internal Medicine

== ENCOUNTER 2021-05-16 15:30 | Inpatient (IN) ==
[2021-05-16] MEDS ORDERED: Senna TAB 8.6 mg TAB PO PRN (16:31)
[2021-05-16] MEDS ORDERED: Albuterol HFA INHALER 8 gm MDI INH PRN (16:31)
[2021-05-16] MEDS ORDERED: Magnesium Hydroxide LIQ 30 ML UDC PO PRN (16:31)
[2021-05-16] MEDS: Mometasone 110 MCG MDI INH SCH (21:07)
[2021-05-16] MEDS ORDERED: Haloperidol 5 mg/ml SDV IV/IM 5 MG/ML AMP IM ONE (21:43)
[2021-05-17 05:59] LABS: ABS Eosinophils 0.3 10^3/ul (0-0.6); ABS Lymphocytes 1.2 10^3/ul (1.0-4.8); ABS Monocytes 0.5 10^3/ul (0-0.8); ABS Neutrophils 3.9 10^3/ul (1.5-7.7); Eosinophil % 5.7 %; Hematocrit 28 % (42-52); Hemoglobin 9.2 g/dL (14.0-18.0); Lymphocyte % 19.5 %; Mean Corpuscular HGB Conc 33 g/dL (31-36); Mean Corpuscular Hemoglobin 30 pg (27-31); Mean Corpuscular Volume 92 fL (80-94); Mean Platelet Volume 7.5 fL (7.4-10.4); Platelet Count 253 10^3/uL (150-450); Red Blood Count 3.05 10^6 /uL (4.18-5.48); Red Cell Distribution Width 16 % (10-15)
[2021-05-17 06:28] LABS: Potassium 4.3 mmol/L (3.5-5.0); eGFR CKD-EPI 41.9 (>60)
[2021-05-17 06:46] LABS: Urine Appearance Clear; Urine Bilirubin Negative (Negative); Urine Blood 2+ (Negative); Urine Color Yellow; Urine Glucose Negative (Negative); Urine Ketones Negative (Negative); Urine Nitrite Negative (Negative); Urine Protein Negative (Negative); Urine Specific Gravity 1.021 (1.002-1.030); Urine Urobilinogen Negative (Negative)
[2021-05-17] MEDS: Mometasone 110 MCG MDI INH SCH ×2 (07:16→19:46)
[2021-05-17 07:29] LABS: Urine Bacteria 1+ (Absent); Urine Red Blood Cell 3+(>10/hpf) (Absent); Urine White Blood Cell Trace(0-5/hpf) (Absent); Urine Yeast Present (Absent)
[2021-05-17] MEDS: Lidocaine PATCH 5% PATCH TRANSDERM SCH (08:46)
[2021-05-17] MEDS: Nicotine PATCH 14 MG/24 HR PATCH TRANSDERM SCH (08:46)
[2021-05-17] MEDS: Enoxaparin 40 MG/0.4 ML SYR SUBCUT SCH (08:47)
[2021-05-17] MEDS: Polyethylene Glycol 3350 17 GM PACKET PO SCH (08:49)
[2021-05-18] MEDS: Mometasone 110 MCG MDI INH SCH ×2 (08:52→19:50)
[2021-05-18] MEDS: Nicotine PATCH 14 MG/24 HR PATCH TRANSDERM SCH (10:05)
[2021-05-18] MEDS: Polyethylene Glycol 3350 17 GM PACKET PO SCH (10:05)
[2021-05-18] MEDS: Lidocaine PATCH 5% PATCH TRANSDERM SCH (10:05)
[2021-05-18] MEDS: Enoxaparin 40 MG/0.4 ML SYR SUBCUT SCH (10:05)
[2021-05-19] MEDS: Mometasone 110 MCG MDI INH SCH ×2 (07:50→19:40)
[2021-05-19] MEDS: Lidocaine PATCH 5% PATCH TRANSDERM SCH (08:16)
[2021-05-19] MEDS: Polyethylene Glycol 3350 17 GM PACKET PO SCH (08:16)
[2021-05-19] MEDS: Nicotine PATCH 14 MG/24 HR PATCH TRANSDERM SCH (08:16)
[2021-05-19] MEDS: Enoxaparin 40 MG/0.4 ML SYR SUBCUT SCH (08:16)
[2021-05-19] MEDS ORDERED: Haloperidol 5 mg/ml SDV IV/IM 5 MG/ML AMP IM ONE (21:56)
[2021-05-19] MEDS ORDERED: Haloperidol 5 mg/ml SDV IV/IM 5 MG/ML AMP ONE (21:58)
[2021-05-20] MEDS: Mometasone 110 MCG MDI INH SCH ×2 (08:01→19:24)
[2021-05-20] MEDS: Nicotine PATCH 14 MG/24 HR PATCH TRANSDERM SCH (10:12)
[2021-05-20] MEDS: Polyethylene Glycol 3350 17 GM PACKET PO SCH (10:13)
[2021-05-20] MEDS: Enoxaparin 40 MG/0.4 ML SYR SUBCUT SCH (10:13)
[2021-05-20] MEDS: Lidocaine PATCH 5% PATCH TRANSDERM SCH (10:13)
[2021-05-20] MEDS: Senna TAB 8.6 mg TAB PO SCH (22:51)
[2021-05-21] MEDS: Mometasone 110 MCG MDI INH SCH ×2 (08:00→19:29)
[2021-05-21] MEDS: Enoxaparin 40 MG/0.4 ML SYR SUBCUT SCH (08:11)
[2021-05-21] MEDS: Polyethylene Glycol 3350 17 GM PACKET PO SCH (08:11)
[2021-05-21] MEDS: Lidocaine PATCH 5% PATCH TRANSDERM SCH (08:12)
[2021-05-21] MEDS: Nicotine PATCH 14 MG/24 HR PATCH TRANSDERM SCH (08:12)
[2021-05-21] MEDS ORDERED: COVID-19 VACCINE, MRNA(MODERNA)/PF 100 MCG/0.5 ML IM ONE (14:32)
[2021-05-21] MEDS ORDERED: COVID-19 VACCINE, TRIS(PFIZER)/PF 30 MCG/0.3 ML IM ONE (17:51)
[2021-05-21] MEDS: Senna TAB 8.6 mg TAB PO SCH (21:36)
[2021-05-22] MEDS: Lidocaine 2% JELLY 6 ML TOPICAL PRN ×2 (04:10→22:54)
[2021-05-22] MEDS: Mometasone 110 MCG MDI INH SCH ×2 (08:35→21:12)
[2021-05-22] MEDS: Nicotine PATCH 14 MG/24 HR PATCH TRANSDERM SCH (10:02)
[2021-05-22] MEDS: Lidocaine PATCH 5% PATCH TRANSDERM SCH (10:02)
[2021-05-22] MEDS: Polyethylene Glycol 3350 17 GM PACKET PO SCH (10:02)
[2021-05-22] MEDS: Enoxaparin 40 MG/0.4 ML SYR SUBCUT SCH (10:03)
[2021-05-22] MEDS: Senna TAB 8.6 mg TAB PO SCH (22:51)
[2021-05-23] MEDS: Mometasone 110 MCG MDI INH SCH ×2 (06:52→20:25)
[2021-05-23] MEDS: Polyethylene Glycol 3350 17 GM PACKET PO SCH (08:28)
[2021-05-23] MEDS: Enoxaparin 40 MG/0.4 ML SYR SUBCUT SCH (08:28)
[2021-05-23] MEDS: Nicotine PATCH 14 MG/24 HR PATCH TRANSDERM SCH (08:30)
[2021-05-23] MEDS: Lidocaine PATCH 5% PATCH TRANSDERM SCH (08:31)
[2021-05-23] MEDS: Senna TAB 8.6 mg TAB PO SCH (21:00)
[2021-05-24] MEDS: Mometasone 110 MCG MDI INH SCH ×2 (07:13→20:33)
[2021-05-24] MEDS: Polyethylene Glycol 3350 17 GM PACKET PO SCH (08:11)
[2021-05-24] MEDS: Lidocaine PATCH 5% PATCH TRANSDERM SCH (08:11)
[2021-05-24] MEDS: Nicotine PATCH 14 MG/24 HR PATCH TRANSDERM SCH (08:15)
[2021-05-24] MEDS: Enoxaparin 40 MG/0.4 ML SYR SUBCUT SCH (08:15)
[2021-05-24] MEDS: Senna TAB 8.6 mg TAB PO SCH (21:53)
[2021-05-25] MEDS: Mometasone 110 MCG MDI INH SCH ×2 (07:07→19:54)
[2021-05-25] MEDS: Lidocaine PATCH 5% PATCH TRANSDERM SCH (07:58)
[2021-05-25] MEDS: Nicotine PATCH 14 MG/24 HR PATCH TRANSDERM SCH (07:58)
[2021-05-25] MEDS: Enoxaparin 40 MG/0.4 ML SYR SUBCUT SCH (08:01)
[2021-05-25] MEDS: Polyethylene Glycol 3350 17 GM PACKET PO SCH (08:04)
[2021-05-25] MEDS: Senna TAB 8.6 mg TAB PO SCH (22:03)
[2021-05-26] MEDS: Mometasone 110 MCG MDI INH SCH ×2 (07:28→20:46)
[2021-05-26] MEDS: Enoxaparin 40 MG/0.4 ML SYR SUBCUT SCH (08:22)
[2021-05-26] MEDS: Lidocaine PATCH 5% PATCH TRANSDERM SCH (08:23)
[2021-05-26] MEDS: Nicotine PATCH 14 MG/24 HR PATCH TRANSDERM SCH (08:23)
[2021-05-26] MEDS: Polyethylene Glycol 3350 17 GM PACKET PO SCH (08:24)
[2021-05-26] MEDS: Senna TAB 8.6 mg TAB PO SCH (21:26)
[2021-05-27] MEDS: Mometasone 110 MCG MDI INH SCH (08:39)
[2021-05-27 08:46] VITALS: BP 109/72
[2021-05-27] MEDS: Polyethylene Glycol 3350 17 GM PACKET PO SCH (09:32)
[2021-05-27] MEDS: Nicotine PATCH 14 MG/24 HR PATCH TRANSDERM SCH (09:35)
[2021-05-27] MEDS: Lidocaine PATCH 5% PATCH TRANSDERM SCH (09:37)
[2021-05-27] MEDS: Enoxaparin 40 MG/0.4 ML SYR SUBCUT SCH (09:41)
[2021-05-27] MEDS: Lidocaine 2% JELLY 6 ML TOPICAL PRN (09:55)
== END 2021-05-27 16:48 | disposition home or self-care (01) | DRG 559 ==
LOC: SSU 16:13 → SUATTDRO 16:13
PROVIDERS: ADMIT Internal Medicine; ATTEND Internal Medicine

== ENCOUNTER 2021-07-02 08:37 | Inpatient (IN) ==
[2021-07-02] MEDS ORDERED: NS 0.9% 1000 ml BAG 1,000 ML IV ONE (09:20)
[2021-07-02 10:02] LABS: ABS Basophils 0.1 10^3/ul (0-0.2); ABS Eosinophils 0.1 10^3/ul (0-0.6); ABS Lymphocytes 1.1 10^3/ul (1.0-4.8); ABS Monocytes 0.9 10^3/ul (0-0.8); ABS Neutrophils 25.4 10^3/ul (1.5-7.7); Eosinophil % 0.3 %; Hematocrit 28 % (42-52); Hemoglobin 8.9 g/dL (14.0-18.0); Lymphocyte % 3.9 %; Mean Corpuscular HGB Conc 32 g/dL (31-36); Mean Corpuscular Hemoglobin 29 pg (27-31); Mean Corpuscular Volume 89 fL (80-94); Mean Platelet Volume 7.3 fL (7.4-10.4); Platelet Count 546 10^3/uL (150-450); Red Cell Distribution Width 18 % (10-15); White Blood Count 27.5 10^3/uL (3.5-10.8)
[2021-07-02 10:04] LABS: Activated Partial Thrombo Time 32.9 seconds (26.0-38.0); INR 1.58 (0.86-1.15)
[2021-07-02 10:37] LABS: Albumin 2.3 g/dL (3.2-5.2); Albumin/Globulin Ratio 0.5 (1-3); Calcium 8.4 mg/dL (8.6-10.3); Globulin 4.2 g/dL (2-4); Potassium 4.7 mmol/L (3.5-5.0); Total Bilirubin 0.3 mg/dL (0.2-1.0); Total Protein 6.5 g/dL (6.4-8.9); eGFR CKD-EPI 47.4 (>60)
[2021-07-02 10:50] LABS: TSH Ultra Thyroid Stim Horm 0.88 mcIU/mL (0.34-5.60)
[2021-07-02] MEDS ORDERED: cefTRIAXone 1 gm/50 mL D5W 1 GM/50 ML BAG IV ONE (11:21)
[2021-07-02] MEDS ORDERED: Azithromycin 500 mg/250 ml NS 500 MG/250 ML BAG IVPB ONE (11:21)
[2021-07-02 11:52] LABS: Urine Appearance Cloudy; Urine Bilirubin Negative (Negative); Urine Blood 2+ (Negative); Urine Color Yellow; Urine Glucose Negative (Negative); Urine Ketones Negative (Negative); Urine Nitrite Positive (Negative); Urine Protein 1+(30 mg/dL) (Negative); Urine Specific Gravity 1.024 (1.002-1.030); Urine Urobilinogen Negative (Negative)
[2021-07-02 11:58] LABS: Urine Bacteria 1+ (Absent); Urine Red Blood Cell 3+(>10/hpf) (Absent); Urine Squamous Epithelial Cell Present (Absent); Urine White Blood Cell 3+(>20/hpf) (Absent)
[2021-07-02] MEDS: Nicotine PATCH 21 MG/24 HR PATCH TRANSDERM SCH (13:02)
[2021-07-02] MEDS: Heparin 5000 UNITS/ML 1 mL VIAL SUBCUT SCH ×2 (14:16→20:52)
[2021-07-02] MEDS: Mometasone/Formoter 200/5 MDI INH SCH ×2 (20:21→20:25)
[2021-07-02] MEDS: oxyCODONE/Acetamin 5/325 mg TAB PO PRN (20:57)
[2021-07-03] MEDS: Heparin 5000 UNITS/ML 1 mL VIAL SUBCUT SCH ×3 (05:08→20:02)
[2021-07-03] MEDS: Mometasone/Formoter 200/5 MDI INH SCH ×2 (07:14→19:20)
[2021-07-03 07:43] LABS: Hematocrit 26 % (42-52); Hemoglobin 8.4 g/dL (14.0-18.0); Mean Corpuscular HGB Conc 33 g/dL (31-36); Mean Corpuscular Hemoglobin 29 pg (27-31); Mean Corpuscular Volume 88 fL (80-94); Mean Platelet Volume 7.4 fL (7.4-10.4); Platelet Count 479 10^3/uL (150-450); Red Blood Count 2.92 10^6 /uL (4.18-5.48); Red Cell Distribution Width 18 % (10-15); White Blood Count 26.2 10^3/uL (3.5-10.8)
[2021-07-03 07:47] LABS: ABS Basophils 0.1 10^3/ul (0-0.2); ABS Eosinophils 0.1 10^3/ul (0-0.6); ABS Lymphocytes 0.9 10^3/ul (1.0-4.8); ABS Monocytes 0.8 10^3/ul (0-0.8); ABS Neutrophils 24.4 10^3/ul (1.5-7.7); Eosinophil % 0.3 %; Lymphocyte % 3.3 %
[2021-07-03 07:59] LABS: ALT 13 U/L (7-52); AST 11 U/L (13-39); Albumin/Globulin Ratio 0.6 (1-3); Alkaline Phosphatase 151 U/L (35-149); Anion Gap 6 mmol/L (2-11); Blood Urea Nitrogen 31 mg/dL (6-24); CO2 Carbon Dioxide 23 mmol/L (22-32); Calcium 7.9 mg/dL (8.6-10.3); Chloride 109 mmol/L (101-111); Globulin 3.6 g/dL (2-4); Glucose 74 mg/dL (70-100); Potassium 4.7 mmol/L (3.5-5.0); Sodium 138 mmol/L (135-145); Total Protein 5.6 g/dL (6.4-8.9); eGFR CKD-EPI 48.6 (>60)
[2021-07-03 08:47] LABS: Total Iron Binding Capacity 137 mcg/dL (250-450); Transferrin 98 mg/dL (203-362)
[2021-07-03 08:48] LABS: % Iron Saturation 15 % (15-55); Iron < 20 ug/dL (50-212); Unsaturated Iron Binding 117 ug/dL
[2021-07-03 09:08] LABS: Ferritin 223.1 ng/mL (24-336)
[2021-07-03] MEDS: Nicotine PATCH 21 MG/24 HR PATCH TRANSDERM SCH (09:53)
[2021-07-03] MEDS ORDERED: cefTRIAXone 1 gm/50 mL D5W 1 GM/50 ML BAG IV SCH (12:00)
[2021-07-03] MEDS ORDERED: Azithromycin 500 mg/250 ml NS 500 MG/250 ML BAG IVPB SCH (13:00)
[2021-07-03] MEDS: oxyCODONE/Acetamin 5/325 mg TAB PO PRN ×2 (13:07→20:22)
[2021-07-03] MEDS ORDERED: Lactated Ringers 1000 ml BAG 500 ML IV ONE (18:12)
[2021-07-03] MEDS ORDERED: oxyCODONE SR 10 mg TAB PO ONE (22:26)
[2021-07-04] MEDS: Heparin 5000 UNITS/ML 1 mL VIAL SUBCUT SCH ×3 (05:42→22:56)
[2021-07-04] MEDS ORDERED: Piperacillin/Tazobac ADVAN 3.375 GM in NS 0.9% 100 ml BAG 100 ML IV ONE (07:15)
[2021-07-04] MEDS: Mometasone/Formoter 200/5 MDI INH SCH ×3 (07:33→21:48)
[2021-07-04 07:52] LABS: ABS Eosinophils 0.1 10^3/ul (0-0.6); ABS Monocytes 0.7 10^3/ul (0-0.8); Eosinophil % 0.5 %; Hematocrit 24 % (42-52); Hemoglobin 7.6 g/dL (14.0-18.0); Lymphocyte % 4.6 %; Mean Corpuscular HGB Conc 32 g/dL (31-36); Mean Corpuscular Hemoglobin 28 pg (27-31); Mean Corpuscular Volume 88 fL (80-94); Mean Platelet Volume 7.4 fL (7.4-10.4); Platelet Count 449 10^3/uL (150-450); Red Blood Count 2.68 10^6 /uL (4.18-5.48); Red Cell Distribution Width 18 % (10-15); White Blood Count 21.9 10^3/uL (3.5-10.8)
[2021-07-04 07:56] LABS: Anion Gap 5 mmol/L (2-11); Blood Urea Nitrogen 26 mg/dL (6-24); CO2 Carbon Dioxide 24 mmol/L (22-32); Calcium 7.6 mg/dL (8.6-10.3); Chloride 108 mmol/L (101-111); Glucose 78 mg/dL (70-100); Magnesium 1.9 mg/dL (1.9-2.7); Potassium 4.7 mmol/L (3.5-5.0); Sodium 137 mmol/L (135-145); eGFR CKD-EPI 46.7 (>60)
[2021-07-04] MEDS ORDERED: Zosyn per Pharmacy NOTE FOLLOW UP SCH (08:00)
[2021-07-04 08:15] LABS: C Reactive Protein 240.17 mg/L (<8.01)
[2021-07-04] MEDS: Nicotine PATCH 21 MG/24 HR PATCH TRANSDERM SCH (08:39)
[2021-07-04] MEDS: oxyCODONE/Acetamin 5/325 mg TAB PO PRN ×2 (09:35→16:40)
[2021-07-04] MEDS ORDERED: hydrOXYzine IM 50 MG/ML VIAL IM ONE (09:51)
[2021-07-04] MEDS ORDERED: Haloperidol 5 mg/ml SDV IV/IM 5 MG/ML AMP IV SLOW PU PRN (09:52)
[2021-07-04 10:09] LABS: ALT 10 U/L (7-52); AST 11 U/L (13-39); Albumin 1.8 g/dL (3.2-5.2); Albumin/Globulin Ratio 0.5 (1-3); Alkaline Phosphatase 148 U/L (35-149); Globulin 3.6 g/dL (2-4); Indirect Bilirubin 0.2 mg/dL (0.3-1.0); Lipase < 10 U/L (11.0-82.0); Total Protein 5.4 g/dL (6.4-8.9)
[2021-07-04] MEDS ORDERED: Lactated Ringers 1000 ml BAG 1,000 ML IV ONE (11:36)
[2021-07-04] MEDS ORDERED: cefTRIAXone 1 GM Q24H (Pharmacy Admix) IVPB SCH (12:00)
[2021-07-04] MEDS: ZOSYN 3.375 GM Q8H per EXTENDED INFUSION IV SCH ×2 (13:37→22:50)
[2021-07-04] MEDS: NS 0.9% 1000 ml BAG 1,000 ML IV SCH (14:44)
[2021-07-04] MEDS ORDERED: Iodixanol (CONTRAST) 320 MG/ML 100 ML SDV IV ONE (16:30)
[2021-07-04] MEDS ORDERED: LORazepam 2 mg VIAL 1 ml IV PUSH ONE (17:56)
[2021-07-04] MEDS ORDERED: Lorazepam PYXIS KEY PRN (17:56)
[2021-07-05] MEDS: NS 0.9% 1000 ml BAG 1,000 ML IV SCH (01:01)
[2021-07-05] MEDS: oxyCODONE/Acetamin 5/325 mg TAB PO PRN ×2 (05:53→15:18)
[2021-07-05] MEDS: ZOSYN 3.375 GM Q8H per EXTENDED INFUSION IV SCH ×4 (05:55→22:31)
[2021-07-05] MEDS: Heparin 5000 UNITS/ML 1 mL VIAL SUBCUT SCH (05:56)
[2021-07-05] MEDS: Mometasone/Formoter 200/5 MDI INH SCH ×2 (08:17→19:40)
[2021-07-05] MEDS ORDERED: Haloperidol 5 mg/ml SDV IV/IM 5 MG/ML AMP IV SLOW PU PRN (09:08)
[2021-07-05] MEDS: Nicotine PATCH 21 MG/24 HR PATCH TRANSDERM SCH (09:47)
[2021-07-05] MEDS: Enoxaparin 40 MG/0.4 ML SYR SUBCUT SCH (13:01)
[2021-07-05] MEDS ORDERED: LORazepam 2 mg VIAL 1 ml IV PUSH PRN ×2 (15:51→16:03)
[2021-07-05] MEDS: Linezolid 600 MG IVPREMIX(*) 600 MG/300 ML BAG IVPB SCH (18:28)
[2021-07-06] MEDS: ZOSYN 3.375 GM Q8H per EXTENDED INFUSION IV SCH ×3 (04:04→22:07)
[2021-07-06] MEDS ORDERED: Polyethylene Glycol 3350 17 GM PACKET ONE (08:01)
[2021-07-06] MEDS: Linezolid 600 MG IVPREMIX(*) 600 MG/300 ML BAG IVPB SCH ×2 (08:06→20:33)
[2021-07-06] MEDS: Nicotine PATCH 21 MG/24 HR PATCH TRANSDERM SCH ×2 (08:06→08:14)
[2021-07-06] MEDS: Polyethylene Glycol 3350 17 GM PACKET PO SCH (08:10)
[2021-07-06] MEDS: oxyCODONE/Acetamin 5/325 mg TAB PO PRN (08:27)
[2021-07-06] MEDS: Mometasone/Formoter 200/5 MDI INH SCH ×2 (09:40→20:17)
[2021-07-06] MEDS: Enoxaparin 40 MG/0.4 ML SYR SUBCUT SCH (12:25)
[2021-07-06] MEDS ORDERED: fentaNYL 100 mcg/2 ml 50 MCG/ML VIAL ONE (14:43)
[2021-07-06 20:53] LABS: ABS Basophils 0.1 10^3/ul (0-0.2); ABS Eosinophils 0.1 10^3/ul (0-0.6); ABS Lymphocytes 0.7 10^3/ul (1.0-4.8); ABS Monocytes 0.8 10^3/ul (0-0.8); ABS Neutrophils 16.8 10^3/ul (1.5-7.7); Eosinophil % 0.6 %; Hematocrit 21 % (42-52); Hemoglobin 6.9 g/dL (14.0-18.0); Mean Corpuscular HGB Conc 33 g/dL (31-36); Mean Corpuscular Hemoglobin 28 pg (27-31); Mean Corpuscular Volume 86 fL (80-94); Mean Platelet Volume 6.8 fL (7.4-10.4); Platelet Count 438 10^3/uL (150-450); Red Blood Count 2.48 10^6 /uL (4.18-5.48); Red Cell Distribution Width 19 % (10-15); White Blood Count 18.6 10^3/uL (3.5-10.8)
[2021-07-06 21:14] LABS: Calcium 7.4 mg/dL (8.6-10.3); Magnesium 1.9 mg/dL (1.9-2.7); eGFR CKD-EPI 39.5 (>60)
[2021-07-06] MEDS: Senna TAB 8.6 mg TAB PO SCH (21:38)
[2021-07-07] MEDS ORDERED: NS 0.9% 500 ml BAG 500 ML IV ONE (01:37)
[2021-07-07] MEDS: oxyCODONE/Acetamin 5/325 mg TAB PO PRN (03:24)
[2021-07-07] MEDS: ZOSYN 3.375 GM Q8H per EXTENDED INFUSION IV SCH ×3 (05:09→22:28)
[2021-07-07] MEDS: Mometasone/Formoter 200/5 MDI INH SCH ×2 (07:57→19:26)
[2021-07-07] MEDS: Polyethylene Glycol 3350 17 GM PACKET PO SCH (09:49)
[2021-07-07] MEDS: Nicotine PATCH 21 MG/24 HR PATCH TRANSDERM SCH (09:50)
[2021-07-07] MEDS: Linezolid 600 MG IVPREMIX(*) 600 MG/300 ML BAG IVPB SCH ×2 (10:07→20:39)
[2021-07-07 11:10] LABS: Hematocrit 21 % (42-52); Hemoglobin 6.8 g/dL (14.0-18.0); Mean Corpuscular HGB Conc 32 g/dL (31-36); Mean Corpuscular Hemoglobin 28 pg (27-31); Mean Corpuscular Volume 88 fL (80-94); Mean Platelet Volume 7.2 fL (7.4-10.4); Platelet Count 442 10^3/uL (150-450); Red Cell Distribution Width 18 % (10-15); White Blood Count 16.9 10^3/uL (3.5-10.8)
[2021-07-07 11:41] LABS: ABS Basophils 0.1 10^3/ul (0-0.2); ABS Eosinophils 0.1 10^3/ul (0-0.6); ABS Lymphocytes 0.7 10^3/ul (1.0-4.8); ABS Monocytes 0.7 10^3/ul (0-0.8); ABS Neutrophils 15.2 10^3/ul (1.5-7.7); Eosinophil % 0.7 %; Lymphocyte % 4.3 %; Nucleated Red Blood Cells % 0.1
[2021-07-07 11:57] LABS: C Reactive Protein 195.57 mg/L (<8.01); Calcium 7.5 mg/dL (8.6-10.3)
[2021-07-07 12:39] LABS: Magnesium 1.9 mg/dL (1.9-2.7); eGFR CKD-EPI 39.8 (>60)
[2021-07-07] MEDS: Enoxaparin 40 MG/0.4 ML SYR SUBCUT SCH (13:31)
[2021-07-07] MEDS: Nystatin TOP POWDER 15 GM BTL TOPICAL SCH ×2 (16:13→20:54)
[2021-07-07] MEDS: Senna TAB 8.6 mg TAB PO SCH (20:41)
[2021-07-08] LABS: Hematocrit 24 % (42-52); Mean Corpuscular HGB Conc 33 g/dL (31-36); Mean Corpuscular Hemoglobin 28 pg (27-31); Mean Corpuscular Volume 87 fL (80-94); Mean Platelet Volume 6.7 fL (7.4-10.4); Platelet Count 419 10^3/uL (150-450); Red Blood Count 2.82 10^6 /uL (4.18-5.48); Red Cell Distribution Width 18 % (10-15); White Blood Count 13.8 10^3/uL (3.5-10.8)
[2021-07-08] MEDS: ZOSYN 3.375 GM Q8H per EXTENDED INFUSION IV SCH ×3 (04:20→23:39)
[2021-07-08 05:35] LABS: Calcium 7.4 mg/dL (8.6-10.3); Magnesium 1.8 mg/dL (1.9-2.7); Potassium 3.9 mmol/L (3.5-5.0)
[2021-07-08 06:12] LABS: Hematocrit 26 % (42-52); Hemoglobin 8.4 g/dL (14.0-18.0); Mean Corpuscular HGB Conc 33 g/dL (31-36); Mean Corpuscular Hemoglobin 28 pg (27-31); Mean Corpuscular Volume 87 fL (80-94); Platelet Count 448 10^3/uL (150-450); Red Blood Count 2.98 10^6 /uL (4.18-5.48); Red Cell Distribution Width 19 % (10-15); White Blood Count 14.6 10^3/uL (3.5-10.8)
[2021-07-08] MEDS ORDERED: Magnesium Sulfate 2 gm BAG 2 GM/50 ML BAG IVPB ONE (07:33)
[2021-07-08] MEDS ORDERED: Buffered Lidocaine 1% SYRIN 1 ml INTRADERM ONE (08:14)
[2021-07-08] MEDS: Polyethylene Glycol 3350 17 GM PACKET PO SCH (08:15)
[2021-07-08] MEDS: Mometasone/Formoter 200/5 MDI INH SCH ×2 (08:35→17:31)
[2021-07-08] MEDS ORDERED: Lactated Ringers 1000 ml BAG 1,000 ML IV SCH (09:00)
[2021-07-08] MEDS: Nicotine PATCH 21 MG/24 HR PATCH TRANSDERM SCH (10:22)
[2021-07-08] MEDS: Nystatin TOP POWDER 15 GM BTL TOPICAL SCH ×2 (10:33→22:09)
[2021-07-08] MEDS: Linezolid 600 MG IVPREMIX(*) 600 MG/300 ML BAG IVPB SCH ×2 (11:42→22:06)
[2021-07-08] MEDS: Heparin 5000 UNITS/ML 1 mL VIAL SUBCUT SCH ×2 (12:07→22:25)
[2021-07-08] MEDS ORDERED: Benzocaine/Butamben/Tetracain (CETACAINE - SINGLE USE) 5 gm TOPICAL ONE (14:47)
[2021-07-08] MEDS ORDERED: Lidocaine 2% PF 5 ML VIAL ONE ×2 (14:47→14:50)
[2021-07-08] MEDS ORDERED: fentaNYL 100 mcg/2 ml 50 MCG/ML VIAL ONE (14:48)
[2021-07-08] MEDS ORDERED: Ketamine HCL 50 mg/ml 10 ml VIAL (500 MG) ONE (14:48)
[2021-07-08] MEDS ORDERED: Rocuronium 50 mg VIAL 10 mg/ml 5 ml VIAL (50 mg) ONE (14:48)
[2021-07-08] MEDS ORDERED: Propofol 10 MG/ML 20 ML BTL ONE (14:50)
[2021-07-08] MEDS ORDERED: Phenylephrine IV 10 MG/ML 1 ml VIAL ONE (14:50)
[2021-07-08] MEDS ORDERED: Ondansetron 4 mg VIAL 2 MG/ML 2 ml VIAL ONE (14:50)
[2021-07-08] MEDS ORDERED: Remifentanil 2 MG VIAL ONE (14:54)
[2021-07-08] MEDS ORDERED: Lidocaine 1% VIAL 10 MG/ML VIAL ONE (15:06)
[2021-07-08] MEDS ORDERED: Sevoflurane BOTTLE ONE (15:06)
[2021-07-08] MEDS ORDERED: Acetaminophen IV 1 GM/100ML 100 ML IV PRN (16:12)
[2021-07-08] MEDS ORDERED: Ondansetron 4 mg VIAL 2 MG/ML 2 ml VIAL IV PRN (16:12)
[2021-07-08] MEDS ORDERED: Naloxone 0.4 mg VIAL 0.4 mg/ml 1 ml VIAL IV PRN (16:12)
[2021-07-08] MEDS ORDERED: fentaNYL 100 mcg/2 ml 50 MCG/ML VIAL IV PRN (16:12)
[2021-07-08] MEDS ORDERED: Sugammadex 500 MG/5 ML 5 ml VIAL IV PUSH ONE ×2 (17:17→17:21)
[2021-07-08] MEDS ORDERED: Albuterol 2.5mg/3 ml (0.083%) NEB.SOLN INH ONE (17:39)
[2021-07-08] MEDS ORDERED: Levalbuterol 0.63MG/3ML NEB UNIT OF USE INH ONE (17:40)
[2021-07-08] MEDS ORDERED: Levalbuterol 1.25MG/0.5ML NEB.SOL ONE (17:40)
[2021-07-08] MEDS ORDERED: Albuterol/Ipratropium NEB.SOL (2.5/0.5 MG) 3 ML NEB.SOLN INH ONE (18:20)
[2021-07-08] MEDS ORDERED: Albuterol/Ipratropium NEB.SOL (2.5/0.5 MG) 3 ML NEB.SOLN INH SCH (19:00)
[2021-07-08] MEDS: Senna TAB 8.6 mg TAB PO SCH (22:10)
[2021-07-09] MEDS: ZOSYN 3.375 GM Q8H per EXTENDED INFUSION IV SCH ×3 (04:24→22:19)
[2021-07-09] MEDS: Heparin 5000 UNITS/ML 1 mL VIAL SUBCUT SCH (06:17)
[2021-07-09] MEDS: Mometasone/Formoter 200/5 MDI INH SCH ×3 (08:51→21:03)
[2021-07-09] MEDS: Polyethylene Glycol 3350 17 GM PACKET PO SCH (09:17)
[2021-07-09] MEDS: Linezolid 600 MG IVPREMIX(*) 600 MG/300 ML BAG IVPB SCH ×2 (09:22→21:02)
[2021-07-09] MEDS: Nicotine PATCH 21 MG/24 HR PATCH TRANSDERM SCH ×2 (12:10→22:16)
[2021-07-09] MEDS: Nystatin TOP POWDER 15 GM BTL TOPICAL SCH ×2 (12:11→21:10)
[2021-07-09] MEDS: Senna TAB 8.6 mg TAB PO SCH (19:25)
[2021-07-09] MEDS: Enoxaparin 40 MG/0.4 ML SYR SUBCUT SCH (21:07)
[2021-07-10] MEDS: ZOSYN 3.375 GM Q8H per EXTENDED INFUSION IV SCH ×3 (04:31→23:05)
[2021-07-10] MEDS: Mometasone/Formoter 200/5 MDI INH SCH ×2 (06:52→21:30)
[2021-07-10] MEDS: Linezolid 600 MG IVPREMIX(*) 600 MG/300 ML BAG IVPB SCH ×2 (09:00→20:34)
[2021-07-10] MEDS: Polyethylene Glycol 3350 17 GM PACKET PO SCH (09:08)
[2021-07-10] MEDS: Nystatin TOP POWDER 15 GM BTL TOPICAL SCH (11:03)
[2021-07-10] MEDS: Nicotine PATCH 21 MG/24 HR PATCH TRANSDERM SCH (22:23)
[2021-07-10] MEDS: Senna TAB 8.6 mg TAB PO SCH (23:57)
[2021-07-10] MEDS: Enoxaparin 40 MG/0.4 ML SYR SUBCUT SCH (23:57)
[2021-07-11] MEDS: Nystatin TOP POWDER 15 GM BTL TOPICAL SCH ×3 (01:27→23:58)
[2021-07-11] MEDS: ZOSYN 3.375 GM Q8H per EXTENDED INFUSION IV SCH (04:34)
[2021-07-11] MEDS ORDERED: Lactated Ringers 1000 ml BAG 1,000 ML IV SCH (06:00)
[2021-07-11] MEDS ORDERED: Buffered Lidocaine 1% SYRIN 1 ml INTRADERM ONE (06:00)
[2021-07-11 06:01] LABS: Hematocrit 25 % (42-52); Hemoglobin 7.9 g/dL (14.0-18.0); Mean Corpuscular HGB Conc 32 g/dL (31-36); Mean Corpuscular Hemoglobin 28 pg (27-31); Mean Corpuscular Volume 87 fL (80-94); Mean Platelet Volume 6.8 fL (7.4-10.4); Platelet Count 420 10^3/uL (150-450); Red Blood Count 2.83 10^6 /uL (4.18-5.48); Red Cell Distribution Width 19 % (10-15)
[2021-07-11 06:19] LABS: Calcium 7.6 mg/dL (8.6-10.3); Phosphorus 2.7 mg/dL (2.5-5.0); eGFR CKD-EPI 45.5 (>60)
[2021-07-11] MEDS: Mometasone/Formoter 200/5 MDI INH SCH ×2 (07:07→20:23)
[2021-07-11] MEDS: Linezolid 600 MG IVPREMIX(*) 600 MG/300 ML BAG IVPB SCH ×2 (08:27→21:50)
[2021-07-11] MEDS: Polyethylene Glycol 3350 17 GM PACKET PO SCH (08:32)
[2021-07-11] MEDS: Senna TAB 8.6 mg TAB PO SCH (19:06)
[2021-07-11] MEDS: Nicotine PATCH 21 MG/24 HR PATCH TRANSDERM SCH (19:11)
[2021-07-11] MEDS: Enoxaparin 40 MG/0.4 ML SYR SUBCUT SCH (21:50)
[2021-07-12 07:45] LABS: ABS Basophils 0.1 10^3/ul (0-0.2); ABS Eosinophils 0.1 10^3/ul (0-0.6); ABS Lymphocytes 1.1 10^3/ul (1.0-4.8); ABS Monocytes 0.4 10^3/ul (0-0.8); ABS Neutrophils 10.3 10^3/ul (1.5-7.7); Eosinophil % 0.5 %; Hematocrit 26 % (42-52); Hemoglobin 8.2 g/dL (14.0-18.0); Lymphocyte % 9.5 %; Mean Corpuscular HGB Conc 32 g/dL (31-36); Mean Corpuscular Hemoglobin 28 pg (27-31); Mean Corpuscular Volume 87 fL (80-94); Mean Platelet Volume 6.7 fL (7.4-10.4); Platelet Count 437 10^3/uL (150-450); Red Blood Count 2.95 10^6 /uL (4.18-5.48); Red Cell Distribution Width 19 % (10-15)
[2021-07-12 08:13] LABS: Calcium 8.1 mg/dL (8.6-10.3); Potassium 3.9 mmol/L (3.5-5.0); eGFR CKD-EPI 50.3 (>60)
[2021-07-12] MEDS: Mometasone/Formoter 200/5 MDI INH SCH ×2 (09:04→18:37)
[2021-07-12] MEDS: Polyethylene Glycol 3350 17 GM PACKET PO SCH (09:54)
[2021-07-12] MEDS: Nystatin TOP POWDER 15 GM BTL TOPICAL SCH ×2 (09:55→23:43)
[2021-07-12] MEDS: Linezolid 600 MG IVPREMIX(*) 600 MG/300 ML BAG IVPB SCH (09:55)
[2021-07-12] MEDS: Iron Sucrose 200 MG in NS 0.9% 100 ml BAG 100 ML IVPB SCH (15:29)
[2021-07-12] MEDS ORDERED: Nicotine Lozenge mini 4 MG LOZNG.MINI MT PRN (18:06)
[2021-07-12] MEDS: Senna TAB 8.6 mg TAB PO SCH (23:31)
[2021-07-12] MEDS: Nicotine PATCH 21 MG/24 HR PATCH TRANSDERM SCH (23:36)
[2021-07-12] MEDS: Enoxaparin 40 MG/0.4 ML SYR SUBCUT SCH (23:41)
[2021-07-13 05:42] LABS: Hematocrit 28 % (42-52); Hemoglobin 8.8 g/dL (14.0-18.0); Mean Corpuscular HGB Conc 32 g/dL (31-36); Mean Corpuscular Hemoglobin 28 pg (27-31); Mean Corpuscular Volume 87 fL (80-94); Mean Platelet Volume 6.7 fL (7.4-10.4); Platelet Count 399 10^3/uL (150-450); Red Blood Count 3.15 10^6 /uL (4.18-5.48); Red Cell Distribution Width 19 % (10-15); White Blood Count 10.4 10^3/uL (3.5-10.8)
[2021-07-13 06:28] LABS: Potassium 4.3 mmol/L (3.5-5.0)
[2021-07-13] MEDS: Mometasone/Formoter 200/5 MDI INH SCH ×2 (08:15→19:38)
[2021-07-13] MEDS: Polyethylene Glycol 3350 17 GM PACKET PO SCH (08:39)
[2021-07-13] MEDS: Nystatin TOP POWDER 15 GM BTL TOPICAL SCH ×2 (09:05→22:03)
[2021-07-13] MEDS: Iron Sucrose 200 MG in NS 0.9% 100 ml BAG 100 ML IVPB SCH (09:05)
[2021-07-13] MEDS ORDERED: EPHEDrine (Pressors) 50 MG/ML VIAL ONE (10:07)
[2021-07-13] MEDS ORDERED: Sterile Water for Inj 20 ML ONE (10:07)
[2021-07-13] MEDS ORDERED: Ondansetron 4 mg VIAL 2 MG/ML 2 ml VIAL ONE (10:09)
[2021-07-13] MEDS ORDERED: Propofol 10 MG/ML 20 ML BTL ONE (10:09)
[2021-07-13] MEDS ORDERED: Dexamethasone IV 4 MG/ML VIAL 1 ml VIAL ONE (10:09)
[2021-07-13] MEDS ORDERED: Sterile Water for Inj 10 ML ONE (10:10)
[2021-07-13] MEDS ORDERED: Ketamine HCL 50 mg/ml 10 ml VIAL (500 MG) ONE (11:19)
[2021-07-13] MEDS ORDERED: fentaNYL 100 mcg/2 ml 50 MCG/ML VIAL IV PRN (11:51)
[2021-07-13] MEDS ORDERED: Ondansetron 4 mg VIAL 2 MG/ML 2 ml VIAL IV PRN (11:51)
[2021-07-13] MEDS ORDERED: Naloxone 0.4 mg VIAL 0.4 mg/ml 1 ml VIAL IV PRN (11:51)
[2021-07-13 16:31] LABS: Body Fluid WBC 48990 /mcL
[2021-07-13 17:25] LABS: Body Fluid Appearance Cloudy; Body Fluid Color Yellow; Body Fluid Source Pleural Fluid
[2021-07-13 20:26] LABS: Body Fluid Mono 8 %; Body Fluid NRBC 1; Body Fluid Total Cells Counted 200
[2021-07-13] MEDS: Nicotine PATCH 21 MG/24 HR PATCH TRANSDERM SCH (21:59)
[2021-07-13] MEDS: Enoxaparin 40 MG/0.4 ML SYR SUBCUT SCH (22:03)
[2021-07-13] MEDS: Senna TAB 8.6 mg TAB PO SCH (22:04)
[2021-07-14 07:06] LABS: Hematocrit 26 % (42-52); Hemoglobin 8.5 g/dL (14.0-18.0); Mean Corpuscular HGB Conc 33 g/dL (31-36); Mean Corpuscular Hemoglobin 28 pg (27-31); Mean Corpuscular Volume 86 fL (80-94); Mean Platelet Volume 6.7 fL (7.4-10.4); Platelet Count 337 10^3/uL (150-450); Red Blood Count 3.01 10^6 /uL (4.18-5.48); Red Cell Distribution Width 19 % (10-15); White Blood Count 6.5 10^3/uL (3.5-10.8)
[2021-07-14] MEDS: Polyethylene Glycol 3350 17 GM PACKET PO SCH (07:17)
[2021-07-14 07:20] LABS: C Reactive Protein 106.78 mg/L (<8.01); Calcium 8.2 mg/dL (8.6-10.3); Potassium 4.6 mmol/L (3.5-5.0); eGFR CKD-EPI 54.5 (>60)
[2021-07-14] MEDS: Mometasone/Formoter 200/5 MDI INH SCH ×2 (07:26→20:33)
[2021-07-14] MEDS: Iron Sucrose 200 MG in NS 0.9% 100 ml BAG 100 ML IVPB SCH (08:19)
[2021-07-14] MEDS: Nystatin TOP POWDER 15 GM BTL TOPICAL SCH ×2 (10:02→22:40)
[2021-07-14 11:32] LABS: Fluid Type, Protein, Total PLEURAL FLUID; Fluid Type: PLEURAL FLUID; Total Protein, BF 2.2 g/dL
[2021-07-14 12:10] LABS: Glucose, BF 55 mg/dL
[2021-07-14] MEDS: Alteplase 10 MG/50 ML NS for CHEST TUBE instillation INTRAPLEUR SCH (18:04)
[2021-07-14] MEDS: DORNASE ALFA 1 mg/ml 5 MG in NS 0.9% 50 ML INTRAPLEUR SCH (18:05)
[2021-07-14] MEDS: Nicotine PATCH 21 MG/24 HR PATCH TRANSDERM SCH (22:41)
[2021-07-15] MEDS: Enoxaparin 40 MG/0.4 ML SYR SUBCUT SCH ×2 (00:38→20:30)
[2021-07-15] MEDS: Senna TAB 8.6 mg TAB PO SCH ×2 (00:38→20:32)
[2021-07-15] MEDS: Albuterol HFA INHALER 8 gm MDI INH PRN (03:58)
[2021-07-15 06:12] LABS: Hematocrit 27 % (42-52); Hemoglobin 8.6 g/dL (14.0-18.0); Mean Corpuscular HGB Conc 31 g/dL (31-36); Mean Corpuscular Hemoglobin 27 pg (27-31); Mean Corpuscular Volume 87 fL (80-94); Mean Platelet Volume 6.8 fL (7.4-10.4); Platelet Count 342 10^3/uL (150-450); Red Blood Count 3.15 10^6 /uL (4.18-5.48); Red Cell Distribution Width 19 % (10-15); White Blood Count 14.5 10^3/uL (3.5-10.8)
[2021-07-15] MEDS: Mometasone/Formoter 200/5 MDI INH SCH ×2 (08:05→20:52)
[2021-07-15] MEDS: Polyethylene Glycol 3350 17 GM PACKET PO SCH (08:38)
[2021-07-15] MEDS: Iron Sucrose 200 MG in NS 0.9% 100 ml BAG 100 ML IVPB SCH (09:06)
[2021-07-15] MEDS: Nystatin TOP POWDER 15 GM BTL TOPICAL SCH ×2 (09:06→20:32)
[2021-07-15 10:01] LABS: High Sensitivity Troponin 1 Hr 9 pg/mL (<20)
[2021-07-15] MEDS: Alteplase 10 MG/50 ML NS for CHEST TUBE instillation INTRAPLEUR SCH ×2 (14:21→16:55)
[2021-07-15] MEDS: DORNASE ALFA 1 mg/ml 5 MG in NS 0.9% 50 ML INTRAPLEUR SCH ×2 (15:40→16:56)
[2021-07-15] MEDS ORDERED: Piperacillin/Tazobac ADVAN 3.375 GM in NS 0.9% 100 ml BAG 100 ML IV ONE (16:57)
[2021-07-15] MEDS ORDERED: Zosyn per Pharmacy NOTE FOLLOW UP SCH (17:00)
[2021-07-15] MEDS: Morphine 2 MG/ML SYRINGE IV PRN (17:32)
[2021-07-15 18:46] LABS: ABS Basophils 0.1 10^3/ul (0-0.2); ABS Monocytes 1.4 10^3/ul (0-0.8); ABS Neutrophils 12.5 10^3/ul (1.5-7.7); Eosinophil % 0.1 %; Hematocrit 26 % (42-52); Hemoglobin 8.2 g/dL (14.0-18.0); Lymphocyte % 6.6 %; Mean Corpuscular HGB Conc 31 g/dL (31-36); Mean Corpuscular Hemoglobin 27 pg (27-31); Mean Corpuscular Volume 87 fL (80-94); Mean Platelet Volume 6.6 fL (7.4-10.4); Nucleated Red Blood Cells % 0.1; Platelet Count 326 10^3/uL (150-450); Red Blood Count 3.04 10^6 /uL (4.18-5.48); Red Cell Distribution Width 19 % (10-15); White Blood Count 14.9 10^3/uL (3.5-10.8)
[2021-07-15 19:23] LABS: Albumin 2.3 g/dL (3.2-5.2); Albumin/Globulin Ratio 0.6 (1-3); Globulin 4.1 g/dL (2-4); Potassium 4.2 mmol/L (3.5-5.0); Total Bilirubin 0.4 mg/dL (0.2-1.0); Total Protein 6.4 g/dL (6.4-8.9); eGFR CKD-EPI 58.8 (>60)
[2021-07-15] MEDS: Nicotine PATCH 21 MG/24 HR PATCH TRANSDERM SCH (20:19)
[2021-07-15] MEDS: Linezolid 600 MG IVPREMIX(*) 600 MG/300 ML BAG IVPB SCH (20:32)
[2021-07-15] MEDS: ZOSYN 3.375 GM Q8H per EXTENDED INFUSION IV SCH (23:24)
[2021-07-16] MEDS ORDERED: NS 0.9% 500 ml BAG 500 ML IV ONE (01:30)
[2021-07-16 05:19] LABS: Hematocrit 23 % (42-52); Hemoglobin 7.3 g/dL (14.0-18.0); Mean Corpuscular HGB Conc 32 g/dL (31-36); Mean Corpuscular Hemoglobin 28 pg (27-31); Mean Corpuscular Volume 87 fL (80-94); Mean Platelet Volume 6.7 fL (7.4-10.4); Platelet Count 315 10^3/uL (150-450); Red Blood Count 2.67 10^6 /uL (4.18-5.48); Red Cell Distribution Width 20 % (10-15)
[2021-07-16 05:34] LABS: ABS Basophils 0.1 10^3/ul (0-0.2); ABS Eosinophils 0.1 10^3/ul (0-0.6); ABS Lymphocytes 1.3 10^3/ul (1.0-4.8); ABS Monocytes 1.4 10^3/ul (0-0.8); ABS Neutrophils 9.3 10^3/ul (1.5-7.7); Eosinophil % 0.6 %; Lymphocyte % 10.4 %; Nucleated Red Blood Cells % 0.2
[2021-07-16 05:40] LABS: Calcium 7.8 mg/dL (8.6-10.3); Potassium 4.1 mmol/L (3.5-5.0)
[2021-07-16 05:45] LABS: eGFR CKD-EPI 50.3 (>60)
[2021-07-16 06:40] LABS: Magnesium 1.7 mg/dL (1.9-2.7)
[2021-07-16 06:45] LABS: C Reactive Protein 149.38 mg/L (<8.01); Phosphorus 2.7 mg/dL (2.5-5.0)
[2021-07-16] MEDS: Linezolid 600 MG IVPREMIX(*) 600 MG/300 ML BAG IVPB SCH ×2 (07:31→17:19)
[2021-07-16] MEDS: Mometasone/Formoter 200/5 MDI INH SCH ×2 (07:36→20:11)
[2021-07-16] MEDS: Iron Sucrose 200 MG in NS 0.9% 100 ml BAG 100 ML IVPB SCH (07:36)
[2021-07-16] MEDS: Polyethylene Glycol 3350 17 GM PACKET PO SCH (07:47)
[2021-07-16] MEDS: Nystatin TOP POWDER 15 GM BTL TOPICAL SCH ×2 (07:47→19:53)
[2021-07-16] MEDS ORDERED: Magnesium Sulfate 2 gm BAG 2 GM/50 ML BAG IVPB ONE (08:21)
[2021-07-16] MEDS: Alteplase 10 MG/50 ML NS for CHEST TUBE instillation INTRAPLEUR SCH (08:28)
[2021-07-16] MEDS: DORNASE ALFA 1 mg/ml 5 MG in NS 0.9% 50 ML INTRAPLEUR SCH (08:28)
[2021-07-16] MEDS: ZOSYN 3.375 GM Q8H per EXTENDED INFUSION IV SCH ×3 (09:13→22:55)
[2021-07-16] MEDS: NS 0.9% 1000 ml BAG 1,000 ML IV SCH (10:29)
[2021-07-16] MEDS: Enoxaparin 40 MG/0.4 ML SYR SUBCUT SCH (20:10)
[2021-07-16] MEDS: Senna TAB 8.6 mg TAB PO SCH (20:10)
[2021-07-16] MEDS: Nicotine PATCH 21 MG/24 HR PATCH TRANSDERM SCH (20:15)
[2021-07-17] MEDS: NS 0.9% 1000 ml BAG 1,000 ML IV SCH (00:02)
[2021-07-17] MEDS: Linezolid 600 MG IVPREMIX(*) 600 MG/300 ML BAG IVPB SCH ×2 (05:49→17:13)
[2021-07-17 05:55] LABS: Hematocrit 27 % (42-52); Hemoglobin 7.9 g/dL (14.0-18.0); Mean Corpuscular HGB Conc 30 g/dL (31-36); Mean Corpuscular Hemoglobin 28 pg (27-31); Mean Corpuscular Volume 92 fL (80-94); Mean Platelet Volume 7.5 fL (7.4-10.4); Platelet Count 150 10^3/uL (150-450); Red Blood Count 2.87 10^6 /uL (4.18-5.48); Red Cell Distribution Width 20 % (10-15)
[2021-07-17 06:16] LABS: Calcium 7.9 mg/dL (8.6-10.3); Magnesium 1.9 mg/dL (1.9-2.7); Potassium 4.1 mmol/L (3.5-5.0)
[2021-07-17 06:22] LABS: Phosphorus 2.5 mg/dL (2.5-5.0)
[2021-07-17] MEDS: Polyethylene Glycol 3350 17 GM PACKET PO SCH (07:07)
[2021-07-17] MEDS: ZOSYN 3.375 GM Q8H per EXTENDED INFUSION IV SCH ×3 (07:30→23:29)
[2021-07-17] MEDS: Nystatin TOP POWDER 15 GM BTL TOPICAL SCH ×3 (07:30→23:21)
[2021-07-17] MEDS: Mometasone/Formoter 200/5 MDI INH SCH ×2 (07:35→19:41)
[2021-07-17] MEDS: Morphine 2 MG/ML SYRINGE IV PRN (15:50)
[2021-07-17] MEDS: Nicotine PATCH 21 MG/24 HR PATCH TRANSDERM SCH (21:18)
[2021-07-17] MEDS: Senna TAB 8.6 mg TAB PO SCH (21:20)
[2021-07-17] MEDS: Enoxaparin 40 MG/0.4 ML SYR SUBCUT SCH (21:21)
[2021-07-18] MEDS: Morphine 2 MG/ML SYRINGE IV PRN ×5 (03:05→23:51)
[2021-07-18] MEDS: Albuterol HFA INHALER 8 gm MDI INH PRN (05:01)
[2021-07-18] MEDS: Linezolid 600 MG IVPREMIX(*) 600 MG/300 ML BAG IVPB SCH ×2 (05:16→20:26)
[2021-07-18] MEDS: NS 0.9% 1000 ml BAG 1,000 ML IV SCH ×2 (05:17→20:15)
[2021-07-18 07:05] LABS: ABS Basophils 0.1 10^3/ul (0-0.2); ABS Eosinophils 0.2 10^3/ul (0-0.6); ABS Lymphocytes 1.1 10^3/ul (1.0-4.8); ABS Monocytes 0.7 10^3/ul (0-0.8); ABS Neutrophils 8.3 10^3/ul (1.5-7.7); C Reactive Protein 116.65 mg/L (<8.01); Calcium 7.9 mg/dL (8.6-10.3); Eosinophil % 1.9 %; Hematocrit 23 % (42-52); Hemoglobin 7.3 g/dL (14.0-18.0); Lymphocyte % 10.2 %; Mean Corpuscular HGB Conc 32 g/dL (31-36); Mean Corpuscular Hemoglobin 28 pg (27-31); Mean Corpuscular Volume 88 fL (80-94); Platelet Count 357 10^3/uL (150-450); Potassium 3.8 mmol/L (3.5-5.0); Red Blood Count 2.63 10^6 /uL (4.18-5.48); Red Cell Distribution Width 20 % (10-15); White Blood Count 10.3 10^3/uL (3.5-10.8); eGFR CKD-EPI 52.1 (>60)
[2021-07-18] MEDS: ZOSYN 3.375 GM Q8H per EXTENDED INFUSION IV SCH ×2 (07:37→16:06)
[2021-07-18] MEDS: Mometasone/Formoter 200/5 MDI INH SCH ×2 (08:02→20:17)
[2021-07-18] MEDS: Polyethylene Glycol 3350 17 GM PACKET PO SCH (09:33)
[2021-07-18] MEDS: Nystatin TOP POWDER 15 GM BTL TOPICAL SCH (11:11)
[2021-07-18] MEDS ORDERED: Potassium Chlor 20 meq TAB.ER PO ONE (19:00)
[2021-07-19] MEDS: Senna TAB 8.6 mg TAB PO SCH ×3 (00:07→23:07)
[2021-07-19] MEDS: Nystatin TOP POWDER 15 GM BTL TOPICAL SCH ×3 (00:11→23:07)
[2021-07-19] MEDS: ZOSYN 3.375 GM Q8H per EXTENDED INFUSION IV SCH ×2 (00:12→08:10)
[2021-07-19] MEDS: Nicotine PATCH 21 MG/24 HR PATCH TRANSDERM SCH ×2 (00:14→23:07)
[2021-07-19] MEDS: Enoxaparin 40 MG/0.4 ML SYR SUBCUT SCH (00:16)
[2021-07-19] MEDS: Morphine 2 MG/ML SYRINGE IV PRN ×5 (05:08→23:19)
[2021-07-19] MEDS: Linezolid 600 MG IVPREMIX(*) 600 MG/300 ML BAG IVPB SCH (05:20)
[2021-07-19] MEDS: Albuterol HFA INHALER 8 gm MDI INH PRN (06:22)
[2021-07-19] MEDS: Mometasone/Formoter 200/5 MDI INH SCH ×2 (06:22→20:11)
[2021-07-19] MEDS: Polyethylene Glycol 3350 17 GM PACKET PO SCH (08:12)
[2021-07-19 08:13] LABS: Hematocrit 24 % (42-52); Hemoglobin 7.6 g/dL (14.0-18.0); Mean Corpuscular HGB Conc 32 g/dL (31-36); Mean Corpuscular Hemoglobin 28 pg (27-31); Mean Corpuscular Volume 88 fL (80-94); Mean Platelet Volume 6.7 fL (7.4-10.4); Platelet Count 323 10^3/uL (150-450); Red Blood Count 2.72 10^6 /uL (4.18-5.48); Red Cell Distribution Width 20 % (10-15); White Blood Count 8.3 10^3/uL (3.5-10.8)
[2021-07-19 08:46] LABS: Potassium 3.9 mmol/L (3.5-5.0)
[2021-07-19 11:39] VITALS: BP 130/57
[2021-07-19] MEDS ORDERED: Lorazepam PYXIS KEY PRN (13:22)
[2021-07-19] MEDS ORDERED: LORazepam 2 mg VIAL 1 ml IV PUSH PRN (13:22)
[2021-07-19] MEDS ORDERED: Ondansetron ODT 4 mg TAB 4 MG TAB SL PRN (14:11)
[2021-07-19] MEDS: LORazepam 2 mg VIAL 1 ml IV PUSH PRN ×2 (14:52→18:20)
[2021-07-19] MEDS ORDERED: LORazepam 2 mg VIAL 1 ml IV PUSH ONE (15:58)
[2021-07-20] MEDS: LORazepam 2 mg VIAL 1 ml IV PUSH PRN ×4 (00:59→16:06)
[2021-07-20] MEDS: Morphine 2 MG/ML SYRINGE IV PRN ×3 (04:23→13:56)
[2021-07-20] MEDS: Mometasone/Formoter 200/5 MDI INH SCH ×2 (08:13→19:53)
[2021-07-20] MEDS: Polyethylene Glycol 3350 17 GM PACKET PO SCH (08:38)
[2021-07-20] MEDS: Nystatin TOP POWDER 15 GM BTL TOPICAL SCH (13:12)
[2021-07-20] MEDS ORDERED: Senna TAB 8.6 mg TAB PO PRN (14:54)
[2021-07-20] MEDS ORDERED: Polyethylene Glycol 3350 17 GM PACKET PO PRN (14:55)
[2021-07-20] MEDS: Nicotine PATCH 21 MG/24 HR PATCH TRANSDERM SCH (15:29)
[2021-07-20] MEDS ORDERED: Lorazepam PYXIS KEY PRN (15:52)
[2021-07-20] MEDS: Morphine ORAL CONCENTRATE 5 MG/0.25 ML ORAL.SYRIN PO PRN ×2 (16:05→18:16)
[2021-07-20] MEDS ORDERED: OLANzapine 5 mg TAB*ODT PO ONE (18:08)
[2021-07-20] MEDS: Simethicone SUSP ORALSYR 66.66 MG/ML PO SCH (23:55)
[2021-07-21] MEDS: Morphine ORAL CONCENTRATE 5 MG/0.25 ML ORAL.SYRIN PO PRN ×5 (00:17→09:51)
[2021-07-21] MEDS: Nystatin TOP POWDER 15 GM BTL TOPICAL SCH ×2 (00:30→09:00)
[2021-07-21] MEDS: LORazepam 2 mg VIAL 1 ml IV PUSH PRN ×2 (00:38→07:44)
[2021-07-21] MEDS: Albuterol HFA INHALER 8 gm MDI INH PRN ×2 (02:32→09:03)
[2021-07-21] MEDS: Mometasone/Formoter 200/5 MDI INH SCH (07:17)
[2021-07-21] MEDS: Simethicone SUSP ORALSYR 66.66 MG/ML PO SCH (09:52)
[2021-07-21] MEDS: Nicotine PATCH 21 MG/24 HR PATCH TRANSDERM SCH (09:54)
== END 2021-07-21 11:50 | disposition hospice, home (50) | DRG 871 ==
LOC: ED 08:37 → SUATTDRO 12:22 → EDHOLD 12:22 → MED 14:59
PROVIDERS: ADMIT Hospitalist; ATTEND Internal Medicine